=== PATIENT | female | born 1960 | race Caucasian/White ===

== ENCOUNTER 2018-06-08 16:33 | Observation (INO) ==
--- NOTE | 2018-06-08 16:39 | Emergency Department Note ---
Disposition Clinical Impression: History of seizure, Polysubstance abuse Altered mental status Qualifiers: Altered mental status type: transient alteration of awareness Qualified C ode(s): R40.4 - Transient alteration of awareness Disposition: Admitted As Inpatient Condition: Fair Altered Mental Status HPI - General Chief Complaint: ED Altered Mental Status Stated Complaint: headache, back pain per pt Time Seen by Provider: 06/08/18 16:37 Source: patient, EMS Mode of arrival: EMS Limitations: altered mental status Nursing Notes Reviewed: Yes Vital Signs Reviewed: Yes - History of Present Illness HPI Narrative: Patient has been brought in by EMS with report of an episode of unresponsiveness and possible seizure per family present. She did not have a little bit of blood from her mouth and by the time of arrival of squad and she is found to be confused. She has had IV fluids on the way to the department and arrives here stating that she "got a headache and a backache". She states he has been present for more than 24 hours. She states she has had trouble like this before and has pseudotumor cerebri. She denies any type of head injury, strain or impact. She has had history of seizures and states her last one was "a couple years ago". She states that she is not on medication for seizures but she has had a neurology in evaluation, EEG and MRI of her head without finding acute abnormality. She relates she has seen a Dr. Yovani Pozo at [facility]. She denies any routine change of her medicines. She denies visual changes, nausea or vomiting. She denies any numbness, tingling or weakness to her extremities. She denies chest pain, palpitations. She denies fevers or chills. She states she has had a little bit of a cough and shortness breath over the course of a week. She indicates this has not been very bad. She does feel that her speech is not back to normal yet and she speaks haltingly. Her family reported that she had been stuttering for about 3 days and that that is unusual for her. Her responses are appropriate. She is sitting picking at her monitor leads with good dexterity with both hands. MD complaint: altered mental status, confusion, other (Possible seizure) Onset (ago): hour(s) (1-2) Timing confirmed by: family member Pain Severity: mild, moderate Consistency of Symptoms: constant Context: history of similar presentation, seizure disorder, history psychiatric disease Associated symptoms: Reports: headaches, loss of appetite, malaise, seizure, weakness. Denies: chest pain, cough, diaphoresis, fever, chills, nausea/vomiting, rash, shortness of breath, syncope, foul smelling urine, difficulty walking, diarrhea, incontinence Treatments prior to arrival: IV fluid - Related Data Home Medications Medication Instructions Recorded Confirmed Gabapentin [Neurontin] 800 mg PO TID 12/13/16 06/08/18 Omeprazole [PriLOSEC] 40 mg PO DAILY 12/13/16 06/08/18 metFORMIN [Glucophage] 500 mg PO BIDWM 12/13/16 06/08/18 Lisinopril [Zestril] 40 mg PO DAILY 03/03/17 06/08/18 Metoprolol Succinate 200 mg PO DAILY 03/12/18 06/08/18 SUMAtriptan Succinate [Imitrex] 100 mg PO Q2H PRN 03/12/18 06/08/18 Previous Rx's Medication Instructions Recorded Cyclobenzaprine [Flexeril] 10 mg PO TID PRN #21 tablet 07/11/17 Allergies Allergy/AdvReac Type Severity Reaction Status Date / Time No Known Allergies Allergy Verified 03/12/18 09:10 All systems ED: reviewed and negative except as stated. Past Medical History - Past Medical History Attestation: Yes The following information was validated with the patient. Source: patient, old records reviewed, nursing notes reviewed Medical history: Reports: arthritis, cancer, diabetes, fibromyalgia, GERD, hyperlipidemia, hypertension, migraine, RA, seizures, other Surgical history: Reports: appendectomy, , cholecystectomy, hip replacement, hysterectomy, knee replacement, orthopedic, other Psychiatric history: Reports: anxiety, depression HEMATOLOGIST history: Reports: no HEMATOLOGIST history - Social History Smoking Status: Never smoker Smokeless Tobacco Status: No Alcohol use: Reports: none Drug use: Reports: other (History of polysubstance abuse with opiates, benzodiazepines and marijuana) Physical Exam - General Limitations: no limitations General appearance: alert, in no apparent distress, anxious - Head Head exam: atraumatic, normocephalic, normal inspection - Eye Eye exam: Present: normal appearance, PERRL, EOMI. Absent: scleral icterus, conjunctival injection - ENT ENT exam: normal exam, mucous membranes moist, other (Patient is a small or swelling on the left side of the tongue. There is no ongoing bleeding and no evidence of dental trauma.) - Neck Neck exam: Present: normal inspection, full ROM, trachea midline. Absent: tenderness, meningismus, lymphadenopathy - Chest Chest inspection: Present: normal inspection, symmetric chest wall rise. Absent: tenderness - Respiratory Respiratory exam: Present: normal lung sounds bilaterally. Absent: respiratory distress, wheezes, prolonged expiratory phase - Cardiovascular Cardiovascular exam: Present: regular rate, normal rhythm, normal heart sounds. Absent: tachycardia - Abdominal Exam Abdominal exam: Present: soft, Non-Tender, normal bowel sounds. Absent: tenderness, distention, guarding, rebound, rigidity - Extremities Exam Extremities exam: Present: normal inspection, full ROM, normal capillary refill. Absent: tenderness, pedal edema - Expanded Lower Extremity Exam Neurovascular/Tendon exam: Present: normal capillary refill. Absent: motor deficit, sensory deficit, tendon deficit Gait: not tested/not observed - Back Exam Back exam: Present: normal inspection, full ROM. Absent: tenderness, vertebral tenderness - Neurological Exam Neurological exam: Present: alert, oriented X3 (Patient is oriented to person, place, birthdate and month. She identify the president as Case Castro.), CN II-XII intact, reflexes normal. Absent: motor sensory deficit - Psychiatric Psychiatric exam: Present: normal affect, normal mood. Absent: agitated, anxious - Skin Skin exam: Present: warm, dry, intact, normal color. Absent: diaphoresis, pallor Course Course Narrative: 1729: Family arrives and finds her to be in poor hygiene but then her mental status is at baseline. They state she has had her holding speech for a long time, has had evaluations of it and no specific cause has been found. It has been suggested it is secondary to her gabapentin. 1825: With return of all tests, care has been discussed with the patient. She denied taking any prescription pain pills. When I have shown her her drug screen she states she does get Percocet from a friend was not sure where the amphetamine would be coming from. She does admit to marijuana. Her family states that she has had a seizure in the past that was associated with polysubstance abuse. It appears she likely has had a seizure. She continues with halting speech and states she needs a nerve pill to make it stop. Family states this has been going on for quite some time area I do not see evidence for other stroke or other acute metabolic process. Patient states she still feels generalized malaise and would feel better with appeared of observation further in the hospital. I advised they can speak to Dr. Yang to see if he would be agreeable with an overnight observation with seizure precautions. She has received a milligram of Ativan after obtaining her urine for drug screen. She is resting comfortably at this time with normal vital signs. 184: Dr. Yang is agreeable with observation, Ativan if needed if recurrent seizures and vital signs with neuro checks. He will reassess in the morning. Verbal orders have been obtained for her observation. 1899: The patient's daughter has returned at the time the patient is about to go to the inpatient floor. She is agreeable with her being observed in the hospital for the night. She states she will then be able to stay with her sister. She did question the results of the drug testing. I have asked the patient if you give permission for this discussion and she has declined. Her daughter expresses understanding and understands that should her mother change her mind the drug screen will also be available on the inpatient floor. Patient is taken to the floor in stable condition. Vital Signs Temperature 97.8 F 06/08/18 16:38 Pulse Rate 62 06/08/18 16:38 Respiratory Rate 17 06/08/18 16:38 Blood Pressure 150/83 06/08/18 16:38 O2 Sat by Pulse Oximetry 98 06/08/18 16:38 Temperature 97.8 F 06/08/18 16:38 Pulse Rate 65 06/08/18 18:49 Respiratory Rate 10 06/08/18 18:49 Blood Pressure 140/95 06/08/18 18:49 O2 Sat by Pulse Oximetry 97 06/08/18 18:49 Oxygen Delivery Oxygen Delivery Room Air Altered Mental Status - Differential Diagnosis Likely: altered mental status (Seizure), hypoglycemia, hyponatremia, psychiatric disease, substance use - Medical Records Medical records reviewed: Yes I reviewed the patient's medical records. - Lab Data Lab results reviewed: Yes I reviewed the patient's lab results. Result diagrams: 06/08/18 16:50 06/08/18 16:50 Lab Results 06/08/18 06/08/18 06/08/18 Range/Units 16:50 16:50 16:50 WBC 8.7 (4.3-11.1) K/mcL RBC 4.24 (3.82-4.97) M/mcL Hgb 12.3 (11.5-15.4) g/dL Hct 37.5 (35.3-44.9) % MCV 88.4 (83.0-100.0) fL MCH 29.0 (28.0-33.3) pg MCHC 32.8 (31.6-35.5) g/dL RDW 12.2 (11.5-14.5) % Plt Count 260 (140-400) K/mcL MPV 9.2 L (9.4-12.4) fL Immature Gran % 0.3 (0-4) % Seg Neutrophils % 67.3 % Lymphocytes % 23.5 % Monocytes % 5.2 % Eosinophils % 3.0 % Basophils % 0.7 % Neutrophils # 5.9 (1.6-8.9) K/mcL Lymphocytes # 2.1 (0.6-4.6) K/mcL Monocytes # 0.5 (0.0-1.3) K/mcL Eosinophils # 0.3 (0.0-0.6) K/mcL Basophils # 0.1 (0.0-0.2) K/mcL PT 10.3 (9.4-12.1) Seconds INR 0.9 APTT 31.3 (26.0-36.0) Seconds Sodium 139 (136-145) mEq/L Potassium 3.5 (3.5-5.1) mEq/L Chloride 102 (98-107) mEq/L Carbon Dioxide 30 H (23-29) mEq/L BUN 9 (6-20) mg/dL Creatinine 0.74 (0.60-1.20) mg/dL Est GFR ( Amer) > 60 (> 60) Est GFR (Non-Af Amer) > 60 (> 60) BUN/Creatinine Ratio 12 (6-26) Glucose 93 (70-105) mg/dL Calculated Osmolality 286 (280-300) Calcium 9.3 (8.6-10.3) mg/dL Total Bilirubin 0.2 L (0.3-1.0) mg/dL Direct Bilirubin 0.0 (0.0-0.2) mg/dL Indirect Bilirubin 0.2 (0.0-1.2) mg/dL AST 10 L (13-39) Units/L ALT 9 (7-52) Units/L Alkaline Phosphatase 81 (34-104) Units/L Ammonia (16-53) mcmol/L Troponin I < 0.03 (< 0.04) ng/mL Serum Total Protein 6.8 (6.4-8.9) g/dL Albumin 3.8 (3.5-5.7) g/dL Globulin 3.0 (2.4-3.5) g/dL Albumin/Globulin Ratio 1.3 (1.1-2.2) Urine Color (Yellow) Urine Clarity (Clear) Urine pH (5.0-8.0) pH Units Ur Specific [place] (1.010-1.025) Urine Protein (Neg-Trace) mg/dL Urine Glucose (UA) (Normal) mg/dL Urine Ketones (Negative) mg/dL Urine Blood (Negative) Urine Nitrite (Negative) Urine Bilirubin (Negative) Urine Urobilinogen (Normal) mg/dL Ur Leukocyte Esterase (Negative) Urine Microscopic RBC (0-3) per hpf Urine Microscopic WBC (0-3) per hpf Ur Squamous Epith Cells (None-Few) per lpf Urine Bacteria (None-Few) per hpf Ur Culture Indicated? (NO) Urine Opiates Screen (Seigxh=094) ng/mL Ur Oxycodone Screen (Cutoff= 100) ng/mL Ur Barbiturates Screen (Budswx=366) ng/mL Ur Phencyclidine Scrn (Cutoff=25) ng/mL Ur Amphetamines Screen (Ukfnqm=9485) ng/mL U Benzodiazepines Scrn (Qibmbm=280) ng/mL Urine Cocaine Screen (Cutoff= 300) ng/mL U Marijuana (THC) Screen (Cutoff = 50) ng/mL Ur Drug Screen Interp Ethyl Alcohol < 10 (Less than 10) mg/dL 06/08/18 06/08/18 06/08/18 Range/Units 16:50 17:55 17:55 WBC (4.3-11.1) K/mcL RBC (3.82-4.97) M/mcL Hgb (11.5-15.4) g/dL Hct (35.3-44.9) % MCV (83.0-100.0) fL MCH (28.0-33.3) pg MCHC (31.6-35.5) g/dL RDW (11.5-14.5) % Plt Count (140-400) K/mcL MPV (9.4-12.4) fL Immature Gran % (0-4) % Seg Neutrophils % % Lymphocytes % % Monocytes % % Eosinophils % % Basophils % % Neutrophils # (1.6-8.9) K/mcL Lymphocytes # (0.6-4.6) K/mcL Monocytes # (0.0-1.3) K/mcL Eosinophils # (0.0-0.6) K/mcL Basophils # (0.0-0.2) K/mcL PT (9.4-12.1) Seconds INR APTT (26.0-36.0) Seconds Sodium (136-145) mEq/L Potassium (3.5-5.1) mEq/L Chloride (98-107) mEq/L Carbon Dioxide (23-29) mEq/L BUN (6-20) mg/dL Creatinine (0.60-1.20) mg/dL Est GFR ( Amer) (> 60) Est GFR (Non-Af Amer) (> 60) BUN/Creatinine Ratio (6-26) Glucose (70-105) mg/dL Calculated Osmolality (280-300) Calcium (8.6-10.3) mg/dL Total Bilirubin (0.3-1.0) mg/dL Direct Bilirubin (0.0-0.2) mg/dL Indirect Bilirubin (0.0-1.2) mg/dL AST (13-39) Units/L ALT (7-52) Units/L Alkaline Phosphatase (34-104) Units/L Ammonia 27 (16-53) mcmol/L Troponin I (< 0.04) ng/mL Serum Total Protein (6.4-8.9) g/dL Albumin (3.5-5.7) g/dL Globulin (2.4-3.5) g/dL Albumin/Globulin Ratio (1.1-2.2) Urine Color Yellow (Yellow) Urine Clarity Clear (Clear) Urine pH 6.5 (5.0-8.0) pH Units Ur Specific [place] 1.010 (1.010-1.025) Urine Protein Negative (Neg-Trace) mg/dL Urine Glucose (UA) Normal (Normal) mg/dL Urine Ketones Negative (Negative) mg/dL Urine Blood Trace-lysed H (Negative) Urine Nitrite Negative (Negative) Urine Bilirubin Negative (Negative) Urine Urobilinogen Normal (Normal) mg/dL Ur Leukocyte Esterase Trace H (Negative) Urine Microscopic RBC 0-3 (0-3) per hpf Urine Microscopic WBC 0-3 (0-3) per hpf Ur Squamous Epith Cells Few (None-Few) per lpf Urine Bacteria Few (None-Few) per hpf Ur Culture Indicated? YES A (NO) Urine Opiates Screen Negative (Nvfwmh=093) ng/mL Ur Oxycodone Screen Positive H (Cutoff= 100) ng/mL Ur Barbiturates Screen Negative (Jhzwre=186) ng/mL Ur Phencyclidine Scrn Negative (Cutoff=25) ng/mL Ur Amphetamines Screen Positive H (Hcbjxo=3468) ng/mL U Benzodiazepines Scrn Negative (Cdxajw=128) ng/mL Urine Cocaine Screen Negative (Cutoff= 300) ng/mL U Marijuana (THC) Screen Positive H (Cutoff = 50) ng/mL Ur Drug Screen Interp See Below Ethyl Alcohol (Less than 10) mg/dL - Radiology Data Radiology results reviewed: Yes I reviewed the patient's radiology results. Single view chest x-ray is performed. This does not demonstrate evidence for infiltrate, effusion, pneumothorax, foreign body or heart failure. The cardiac silhouette is normal. I do not see abnormality to the osseous structures of the chest. This is on my interpretation. CT head is performed. This is reviewed on bone and soft tissue windows. There is no evidence for acute intracranial bleed, shift, mass or edema. Patient does have some frontal atrophy. Ventricular spaces appear normal. Mastoids and sinuses appear normal. There is no fracture evident. This is on my interpretation. - EKG Data EKG attestation: Yes I reviewed and interpreted this EKG. EKG shows normal: sinus rhythm, axis, intervals, QRS complexes, ST-T waves Rate: normal (60) Interpretation: no acute changes, normal EKG TPA Checklist - LKW: 3-4.5 hrs Add. Warnings/Precautions Patient/family understanding: The patient/family members have been counseled and understood the risk, benefit, and alternatives of treatment.
[2018-06-08] MEDS ORDERED: 0.9 % Sodium Chloride 1,000 ML IVC SCH (16:45)
[2018-06-08] MEDS ORDERED: *HR* LORazepam 2 MG/ML VIAL IVP ONE (16:48)
[2018-06-08 16:59] LABS: Basophils # 0.1 K/mcL (0.0-0.2); Basophils % 0.7 %; Eosinophils # 0.3 K/mcL (0.0-0.6); Hematocrit 37.5 % (35.3-44.9); Hemoglobin 12.3 g/dL (11.5-15.4); Immature Granulocytes % 0.3 % (0-4); Lymphocytes # 2.1 K/mcL (0.6-4.6); Lymphocytes % 23.5 %; Mean Corpuscular HGB Conc 32.8 g/dL (31.6-35.5); Mean Corpuscular Volume 88.4 fL (83.0-100.0); Mean Platelet Volume 9.2 fL (9.4-12.4); Monocytes # 0.5 K/mcL (0.0-1.3); Monocytes % 5.2 %; Neutrophils # 5.9 K/mcL (1.6-8.9); Platelet Count 260 K/mcL (140-400); Red Blood Count 4.24 M/mcL (3.82-4.97); Red Cell Distribution Width 12.2 % (11.5-14.5); Segmented Neutrophils % 67.3 %
[2018-06-08 17:07] LABS: INR 0.9; Prothrombin Time 10.3 Seconds (9.4-12.1)
[2018-06-08 17:09] LABS: Activated Partial Thrombo Time 31.3 Seconds (26.0-36.0)
[2018-06-08 17:18] LABS: Troponin I < 0.03 ng/mL (< 0.04)
[2018-06-08 17:19] LABS: Alanine Aminotransferase 9 Units/L (7-52); Albumin 3.8 g/dL (3.5-5.7); Albumin/Globulin Ratio 1.3 (1.1-2.2); Alkaline Phosphatase 81 Units/L (34-104); Aspartate Amino Transferase 10 Units/L (13-39); BUN/Creatinine Ratio 12 (6-26); Bilirubin,Indirect 0.2 mg/dL (0.0-1.2); Bilirubin,Total 0.2 mg/dL (0.3-1.0); Blood Urea Nitrogen 9 mg/dL (6-20); Calcium 9.3 mg/dL (8.6-10.3); Carbon Dioxide 30 mEq/L (23-29); Chloride 102 mEq/L (98-107); Ethanol < 10 mg/dL (Less than 10); Glucose 93 mg/dL (70-105); Osmolality,Calculated 286 (280-300); Potassium 3.5 mEq/L (3.5-5.1); Sodium 139 mEq/L (136-145); Total Protein 6.8 g/dL (6.4-8.9); eGFR For Non-African Americans > 60 (> 60)
[2018-06-08 18:12] LABS: Bilirubin,Urine Negative (Negative); Blood,Urine Trace-lysed (Negative); Clarity,Urine Clear (Clear); Color,Urine Yellow (Yellow); Glucose,Urine (UA) Normal (Normal); Ketones,Urine Negative (Negative); Leukocyte Esterase,Urine Trace (Negative); Nitrite,Urine Negative (Negative); PH,Urine 6.5 pH Units (5.0-8.0); Protein,Urine Negative (Neg-Trace); Urobilinogen,Urine Normal (Normal)
[2018-06-08 18:20] LABS: Bacteria,Urine Few per hpf (None-Few); RBC,Urine 0-3 per hpf (0-3); Squamous Epithelial Cell,Urine Few per lpf (None-Few); WBC,Urine 0-3 per hpf (0-3)
[2018-06-08 18:21] LABS: Amphetamine Screen,Urine Positive ng/mL (Cutoff=1000); Barbiturate Screen,Urine Negative ng/mL (Cutoff=200); Benzodiazepines Screen,Urine Negative ng/mL (Cutoff=200); Cannabinoid Screen,Urine Positive ng/mL (Cutoff = 50); Cocaine Screen,Urine Negative ng/mL (Cutoff= 300); Opiate Screen,Urine Negative ng/mL (Cutoff=300); Phencyclidine Screen,Urine Negative ng/mL (Cutoff=25)
[2018-06-08] MEDS ORDERED: Dextrose Gel 15 GM/37.5 ML TUBE PO PRN ×2 (18:50)
[2018-06-08] MEDS ORDERED: D5% in Water 1,000 ML IVC PRN (18:50)
[2018-06-08] MEDS ORDERED: *HR* LORazepam 2 MG/ML VIAL IVP PRN (18:50)
[2018-06-08] MEDS ORDERED: *HR* Dextrose 50 % in Water (Syg) 50 ML SYRINGE IVP PRN (18:50)
[2018-06-08] MEDS ORDERED: SUMAtriptan succinate 50 MG TABLET PO PRN (18:50)
[2018-06-08] MEDS ORDERED: Naloxone 0.4 MG/ML INJ IVP PRN (18:50)
[2018-06-08] MEDS: 0.9 % Sodium Chloride 1,000 ML IVC SCH (19:00)
[2018-06-08] MEDS: Gabapentin 400 MG CAPSULE PO SCH (22:19)
[2018-06-09] MEDS: 0.9 % Sodium Chloride 1,000 ML IVC SCH (02:26)
[2018-06-09] MEDS ORDERED: *HR* Metformin 500 MG TABLET PO SCH (08:00)
[2018-06-09] MEDS: Gabapentin 400 MG CAPSULE PO SCH (08:35)
[2018-06-09] MEDS: Insulin LISPRO 300 UNITS/3 ML VIAL SQ SCH ×2 (08:35→11:39)
[2018-06-09] MEDS ORDERED: Metoprolol XL (24 HR) Succ 50 MG TAB.ER.24H PO SCH (09:00)
[2018-06-09] MEDS ORDERED: Lisinopril 20 MG TABLET PO SCH (09:00)
[2018-06-09 09:34] VITALS: BP 134/75
--- NOTE | 2018-06-09 12:04 | Internal Med History&Physical ---
Date of Encounter: 06/09/18 Time of Encounter: 11:35 Assessment and Plan (1) Seizure disorder Current visit: No Status: Chronic No further seizures since admission. (2) Pseudotumor cerebri Current visit: No Status: Chronic No treatment such as acetazolomide in use at this time. (3) Polysubstance abuse Current visit: Yes Status: Chronic She did not deny this. (4) HTN (hypertension) Current visit: No Status: Chronic Continue Toprol-XL and lisinopril Qualifiers: Hypertension type: essential hypertension Qualified Code(s): I10 - Essential (primary) hypertension Internal Medicine - H&P: HPI Chief complaint: Seizure Admitted From: Emergency Dept Plans for Post Hospital Care: Home History of present illness: Ms. Amlanzar is a 57 year old female who came to emergency room after family reported her to be unresponsive and had possible seizure. She was evaluated in emergency room with CT of head showing no acute pathology. There were no significant metabolic abnormalities. Urine drug screen tested positive for oxycodone, amphetamine, and marijuana. It was felt she should be observed overnight for ongoing care needs. She reports her first seizure was at approximately 16 years of age. She reports having a "few" seizures since initial one and estimates most recent one to have been 4-5 years ago. She does not take seizure medication. She has seen a neurologist at [facility] purports the last visit approximately 4 years ago. She denies alcohol use. She denies large distribution strokes. Past Med Surg Social Fam HX - Past Medical History Medical history: arthritis, diabetes, fibromyalgia, GERD, hyperlipidemia, hypertension, migraine, RA, seizures, other Additional medical history: hx of diverticulitis, IBS,neuropathy,pseudo tumor cerebri had shunt in spine, lipoma on back, Psychiatric history: anxiety, depression - Past Surgical History Surgical History: appendectomy, , cholecystectomy, hip replacement, hysterectomy, knee replacement, orthopedic, other Additional surgical history: eye surgery - Social History Smoking Status: Never smoker Smokeless Tobacco Status: No Alcohol use: none Drug use: marijuana, other - Family History Mother Adopted: No Living Status: Unknown Hx Family Cardiac Disorders: No Hx Family Respiratory Disorders: No Hx Family Cancer: No Hx Family GI Disorders: No Hx Family Endocrine Disorder: No Hx Family Neuromuscular Disorders: No Hx Family Neurologic Disorders: No Hx Family HEENT Disorders: No Hx Family Autoimmune Disorders: No Daughter Living Status: Still Living Hx Family Cancer: Yes Internal Medicine - H&P: Meds Gabapentin [Neurontin] 800 mg PO TID 12/13/16 [History] Omeprazole [PriLOSEC] 40 mg PO DAILY 12/13/16 [History] metFORMIN [Glucophage] 500 mg PO BIDWM 12/13/16 [History] Lisinopril [Zestril] 40 mg PO DAILY 03/03/17 [History] Cyclobenzaprine [Flexeril] 10 mg PO TID PRN #21 tablet 07/11/17 [Rx] Metoprolol Succinate 200 mg PO DAILY 03/12/18 [History] SUMAtriptan Succinate [Imitrex] 100 mg PO Q2H PRN 03/12/18 [History] Allergy/AdvReac Type Severity Reaction Status Date / Time No Known Allergies Allergy Verified 03/12/18 09:10 All Systems PM: A 10-system review of systems was performed and is negative for pertinent findings except as documented above in the HPI. Review of systems: Gen.: She states her weight has decreased proximate 40 pounds in the past 3 months, unintentional Cardiovascular: She has history of hypertension but denies MS heart failure DVT or pulmonary embolus. She reports occasional chest pain on exertion. Respiratory: She states she is a lifelong nonsmoker denies chronic lung disease GI: She has had cholecystectomy. She denies disorders of her liver or exocrine pancreas : She denies hematuria dysuria or kidney stones Neurologic: As per history of present illness Endocrine: She was diagnosed with DM 2 approximately 2016. She denies known thyroid disease or hyperlipidemia Hematology/oncology: She denies blood disorders cancers or anemia Psychiatric: She feels depressed at times but does not take medication. She denies other mental health diagnosis. [place] skeletal: She has DJD and gout. She has had bilateral total knee replacements and right hip replacement. She reports RLS. She denies other bone joint or muscle disorders. - Constitutional Vitals: Temp Pulse Resp BP Pulse Ox 97.5 F L 60 16 134/75 94 06/09/18 09:33 02 09:33 02 09:33 06/09/18 09:33 06/09/18 09:33 Exam: Gen.: She is a well-developed overweight female resting comfortably in bed who appears in no severe distress HEENT: Head is atraumatic and normal cephalic. Eyes: EOMI. There is no scleral icterus. Mouth: Mucosa is moist. Neck: Supple and nontender. There is no thyromegaly or adenopathy noted. Heart: Regular without murmurs gallops or ectopics Lungs: No wheezes or crackles are heard. Abdomen: Soft and nontender. No masses or guarding are noted. Extremities: There is no cyanosis edema or clubbing noted. Dorsalis pedis and posttibial pulses are trace to 1+ palpable bilaterally. Neurologic: Mental status: She is talkative and a good historian. Cranial nerves: Smile is symmetric. Forehead wrinkles bilaterally. Tongue protrudes midline. EOMI. Motor: There is no pronator drift. Cerebellar: Finger to nose is intact bilaterally. Skin: Warm and dry Internal Med - H&P Results - Labs CBC & Chem 7: 06/08/18 16:50 06/08/18 16:50 Labs: Short CBC 06/08/18 Range/Units 16:50 WBC 8.7 (4.3-11.1) K/mcL Hgb 12.3 (11.5-15.4) g/dL Hct 37.5 (35.3-44.9) % Plt Count 260 (140-400) K/mcL Neutrophils # 5.9 (1.6-8.9) K/mcL BMP 06/08/18 16:50 Sodium 139 Potassium 3.5 Chloride 102 Carbon Dioxide 30 H BUN 9 Creatinine 0.74 Glucose 93 Calcium 9.3 Cardiac Enzymes 06/08/18 Range/Units 16:50 Troponin I < 0.03 (< 0.04) ng/mL Liver Function 06/08/18 Range/Units 16:50 Total Bilirubin 0.2 L (0.3-1.0) mg/dL Direct Bilirubin 0.0 (0.0-0.2) mg/dL AST 10 L (13-39) Units/L ALT 9 (7-52) Units/L Alkaline Phosphatase 81 (34-104) Units/L Albumin 3.8 (3.5-5.7) g/dL Urine 06/08/18 Range/Units 17:55 Urine Color Yellow (Yellow) Urine Clarity Clear (Clear) Urine pH 6.5 (5.0-8.0) pH Units Ur Specific [place] 1.010 (1.010-1.025) Urine Protein Negative (Neg-Trace) mg/dL Urine Glucose (UA) Normal (Normal) mg/dL - Impressions ITS Impressions Chest X-Ray 06/08/18 16:38 IMPRESSION: No acute process. D/ / Robinson Bernabe MD / Robinson Bernabe MD Interpreting Provider: Robinson Bernabe MD Head CT 06/08/18 16:38 IMPRESSION: No acute intracranial abnormality. D/ / Robinson Bernabe MD / Robinson Bernabe MD Interpreting Provider: Robinson Bernabe MD
--- NOTE | 2018-06-09 12:27 | Discharge Summary ---
Orders not resulted at time of discharge: Pending orders 06/08/18 16:38 ECG 12 lead ECG [ECG] Stat 06/08/18 17:55 Culture,Urine [RM] Stat Date of Encounter: 06/09/18 Time of Encounter: 11:35 - Discharge Diagnosis (1) Seizure disorder Priority: Primary Status: Chronic (2) Pseudotumor cerebri Priority: Secondary Status: Chronic (3) Polysubstance abuse Priority: Secondary Status: Chronic (4) HTN (hypertension) Priority: Secondary Status: Chronic Qualifiers: Hypertension type: essential hypertension Qualified Code(s): I10 - Essential (primary) hypertension Hospital course: Ms. Almanzar is a 57 year old female who came to emergency room after family reported her to be unresponsive and had possible seizure. She was evaluated in emergency room with CT of head showing no acute pathology. There were no significant metabolic abnormalities. Urine drug screen tested positive for oxycodone, amphetamine, and marijuana. It was felt she should be observed overnight for ongoing care needs. Initial orders were written by emergency room physician. I saw her on June 09 and performed the history and physical and discharge. She had no further seizures after admission. When I saw her I felt she was back to her baseline. I encouraged her strongly to discontinue polysubstance abuse. I told her she should follow with the neurologist at [facility] for further evaluation/treatment for seizures. Consideration for treatment for pseudotumor cerebri could be made by the neurologist also. He should also evaluate if she should retain driving privileges at this time. She will follow with her PCP Alireza Crocker CNP within 1 week. - Time Spent with Patient Total time spent providing and/or coordinating discharge services: - Discharge Medications Home Medications: Gabapentin [Neurontin] 800 mg PO TID 12/13/16 [History] Omeprazole [PriLOSEC] 40 mg PO DAILY 12/13/16 [History] metFORMIN [Glucophage] 500 mg PO BIDWM 12/13/16 [History] Lisinopril [Zestril] 40 mg PO DAILY 03/03/17 [History] Cyclobenzaprine [Flexeril] 10 mg PO TID PRN #21 tablet 07/11/17 [Rx] Metoprolol Succinate 200 mg PO DAILY 03/12/18 [History] SUMAtriptan Succinate [Imitrex] 100 mg PO Q2H PRN 03/12/18 [History] Allergies/Adverse Reactions: Allergy/AdvReac Type Severity Reaction Status Date / Time No Known Allergies Allergy Verified 03/12/18 09:10 Date of admission: 06/08/18 18:45 Primary care physician: Alireza Crocker CNP - Constitutional Vitals: Temp Pulse Resp BP Pulse Ox 97.5 F L 60 16 134/75 94 06/09/18 09:33 06/09/18 09:33 06/09/18 09:33 06/09/18 09:33 06/09/18 09:33 - Patient Status Disposition: Home, Self-Care Condition: Fair - Discharge Instructions Follow Up With: Alireza Crocker CNP [Primary Care Provider] - 1 week - Diet and Activity Activity: resume usual activities as tolerated Diet: advance to your usual diet
--- NOTE | 2018-06-12 13:51 | Electrocardiograph Report ---
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
== END 2018-06-09 13:02 | disposition home or self-care (01) ==
LOC: INPPIK 16:33 → EMEROOPIK 16:33 → INPPIK 19:01
PROVIDERS: ADMIT Internal Medicine; ATTEND Internal Medicine

== ENCOUNTER 2018-06-29 18:24 | Inpatient (IN) ==
[2018-06-29] MEDS ORDERED: 0.9 % Sodium Chloride 1,000 ML IVC ONE (18:42)
[2018-06-29 19:01] LABS: Bilirubin,Urine Negative (Negative); Blood,Urine Moderate (Negative); Clarity,Urine Clear (Clear); Color,Urine Yellow (Yellow); Glucose,Urine (UA) Normal (Normal); Ketones,Urine Negative (Negative); Leukocyte Esterase,Urine Large (Negative); Nitrite,Urine Positive (Negative); Protein,Urine Negative (Neg-Trace); Urobilinogen,Urine Normal (Normal)
[2018-06-29 19:11] LABS: Basophils # 0.1 K/mcL (0.0-0.2); Basophils % 0.5 %; Eosinophils # 0.2 K/mcL (0.0-0.6); Eosinophils % 1.9 %; Hematocrit 36.8 % (35.3-44.9); Hemoglobin 12.1 g/dL (11.5-15.4); Immature Granulocytes % 0.3 % (0-4); Lymphocytes # 1.5 K/mcL (0.6-4.6); Lymphocytes % 15.6 %; Mean Corpuscular HGB Conc 32.9 g/dL (31.6-35.5); Mean Corpuscular Hemoglobin 28.9 pg (28.0-33.3); Mean Platelet Volume 9.4 fL (9.4-12.4); Monocytes # 0.5 K/mcL (0.0-1.3); Neutrophils # 7.3 K/mcL (1.6-8.9); Platelet Count 270 K/mcL (140-400); Red Blood Count 4.18 M/mcL (3.82-4.97); Red Cell Distribution Width 12.6 % (11.5-14.5); Segmented Neutrophils % 76.7 %
[2018-06-29 19:20] LABS: Squamous Epithelial Cell,Urine Few per lpf (None-Few)
[2018-06-29 19:21] LABS: WBC,Urine 30-50 per hpf (0-3)
[2018-06-29 19:23] LABS: Bacteria,Urine Moderate per hpf (None-Few)
[2018-06-29 19:26] LABS: BUN/Creatinine Ratio 11 (6-26); Blood Urea Nitrogen 8 mg/dL (6-20); Calcium 9.3 mg/dL (8.6-10.3); Carbon Dioxide 26 mEq/L (23-29); Chloride 101 mEq/L (98-107); Glucose 152 mg/dL (70-105); Magnesium 1.3 mg/dL (1.6-2.6); Osmolality,Calculated 289 (280-300); Phosphorous 3.2 mg/dL (2.7-4.5); Potassium 3.1 mEq/L (3.5-5.1); Sodium 139 mEq/L (136-145); eGFR For Non-African Americans > 60 (> 60)
[2018-06-29 19:34] LABS: Amphetamine Screen,Urine Positive ng/mL (Cutoff=1000); Barbiturate Screen,Urine Negative ng/mL (Cutoff=200); Benzodiazepines Screen,Urine Negative ng/mL (Cutoff=200); Cannabinoid Screen,Urine Positive ng/mL (Cutoff = 50); Cocaine Screen,Urine Negative ng/mL (Cutoff= 300); Opiate Screen,Urine Negative ng/mL (Cutoff=300); Phencyclidine Screen,Urine Negative ng/mL (Cutoff=25)
[2018-06-29] MEDS ORDERED: cefTRIAXone 1,000 MG in Water for inj. (sterile) 20 ML 10 ML IVP ONE (19:37)
[2018-06-29] MEDS ORDERED: Potassium Chloride Elixir 20 MEQ/15 ML UDC PO ONE (19:56)
[2018-06-29] MEDS ORDERED: Magnesium Oxide 400 MG TABLET PO STA (19:56)
--- NOTE | 2018-06-29 20:10 | Emergency Department Note ---
Disposition Clinical Impression: Seizure, Polysubstance abuse Disposition: Admitted As Inpatient Condition: Fair Referrals: Alireza Crocker CNP [Primary Care Provider] - Forms: ED Satisfaction Letter, Work/School Release Seizure HPI - General Chief Complaint: ED General Medical Stated Complaint: POSSIBLE SEIZURE/DRUG USE Time Seen by Provider: 06/29/18 18:41 Source: patient, family, EMS Mode of arrival: EMS Limitations: other Nursing Notes Reviewed: Yes Vital Signs Reviewed: Yes - History of Present Illness HPI Narrative: Agent presents to the ED with report of having had 2 seizures today. Per EMS they were called out to the patient's resident twice for seizure activity. The first and they went out to assess patient was not seizing and she was alert and oriented and refused transport. They were then called back out less than an hour later for reported seizure again. Hemostasis in the right patient was sitting up on the side of bed alert and awake and was not having any seizure activity. She had a specimen in her mouth which other people to house head patient her mouth presented with a keeper from biting her swallowing her tongue. She had no complaints but did agree to come into the ED. On arrival here patient is somnolent and appears to be post ictal but will wake up and answer questions. She knows her name and her location. She does not recall what happened earlier today. She denies having any history of seizures or taking any seizure medication. She does tell me that she has pseudotumor cerebri, high blood pressure and diabetes. Per EMS glucose was 150. She denies any tobacco, alcohol or drug use. EMS did state that other people at the residence appeared to be "on something" because they were "all over the place". Patient tells me she does not feel well but cannot give me any more specific information. When questioned directly she denied any pain including headache, chest pain or abdominal pain. She denied any difficulty breathing, nausea, vomiting or diarrhea. - Related Data Home Medications Medication Instructions Recorded Confirmed Gabapentin [Neurontin] 800 mg PO TID 12/13/16 06/08/18 Omeprazole [PriLOSEC] 40 mg PO DAILY 12/13/16 06/08/18 metFORMIN [Glucophage] 500 mg PO BIDWM 12/13/16 06/08/18 Lisinopril [Zestril] 40 mg PO DAILY 03/03/17 06/08/18 Metoprolol Succinate 200 mg PO DAILY 03/12/18 06/08/18 SUMAtriptan Succinate [Imitrex] 100 mg PO Q2H PRN 03/12/18 06/08/18 Citalopram Hydrobromide 40 mg PO DAILY 06/29/18 06/29/18 [Citalopram HBr] hydrOXYzine HCl [Hydroxyzine HCl] 50 mg PO BID 06/29/18 06/29/18 Previous Rx's Medication Instructions Recorded Cyclobenzaprine [Flexeril] 10 mg PO TID PRN #21 tablet 07/11/17 Allergies Allergy/AdvReac Type Severity Reaction Status Date / Time No Known Allergies Allergy Verified 06/29/18 18:37 Constitutional: Denies: fever, chills, weakness, weight change Eyes: Denies: eye pain, eye discharge, vision change ENT ED: Denies: ear pain, throat pain, dental pain, hearing loss, epistaxis, congestion, dysphagia Cardiovascular: Denies: chest pain, palpitations, dyspnea on exertion, edema, syncope Respiratory: Denies: cough, dyspnea, wheezes, hemoptysis, stridor Gastrointestinal: Denies: abdominal pain, nausea, vomiting, diarrhea, constipation, hematemesis, melena, hematochezia Genitourinary: Denies: dysuria, frequency, hematuria, discharge Musculoskeletal: Denies: back pain, neck pain, arthralgia, myalgia Integumentary: Denies: rash, abrasion, lesions Neurological: Reports: as per HPI. Denies: headache, weakness, numbness, paresthesias, confusion, abnormal gait, vertigo Psychiatric: Denies: anxiety, depression, suicidal thoughts, homicidal thoughts, auditory hallucinations, visual hallucinations Endocrine: Denies: fatigue Hematological/Lymphatic: Denies: easy bleeding, easy bruising Allergic/Immunologic: Denies: facial swelling, urticaria Past Medical History - Past Medical History Medical history: Reports: arthritis, diabetes, fibromyalgia, GERD, hyperlipidemia, hypertension, migraine, RA, seizures, other Surgical history: Reports: appendectomy, , cholecystectomy, hip replacement, hysterectomy, knee replacement, orthopedic, other Psychiatric history: Reports: anxiety, bipolar, depression 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 - Social History Smoking Status: Current every day smoker Smokeless Tobacco Status: No Alcohol use: Reports: unknown Drug use: Reports: marijuana, other Physical Exam - General Limitations: other General appearance: in no apparent distress, other (drowsy, post-ictal) - Head Head exam: atraumatic, normocephalic, normal inspection - Eye Eye exam: Present: PERRL, EOMI, mydriasis - ENT ENT exam: normal oropharynx, mucous membranes moist - Expanded ENT Exam Mouth exam: Present: laceration (small lac/bite to R side of tongue) Throat exam: Present: normal inspection - Neck Neck exam: Present: normal inspection, full ROM, trachea midline - Chest Chest inspection: Present: normal inspection, symmetric chest wall rise - Respiratory Respiratory exam: Present: normal lung sounds bilaterally - Cardiovascular Cardiovascular exam: Present: regular rate, normal rhythm, normal heart sounds - Abdominal Exam Abdominal exam: Present: soft, Non-Tender. Absent: tenderness, distention, gu arding, rebound, rigidity - Extremities Exam Extremities exam: Present: normal inspection, full ROM. Absent: tenderness, pedal edema - Back Exam Back exam: Present: normal inspection, full ROM. Absent: tenderness - Neurological Exam Neurological exam: Present: alert, CN II-XII intact. Absent: motor sensory deficit - Expanded Neurological Exam Patient oriented to: Present: person, place Motor strength - LUE: 5/5 Motor strength - RUE: 5/5 Motor strength - LLE: 5/5 Motor strength - RLE: 5/5 Coma Scale Eye Opening: Spontaneous Coma Scale Motor Response: Obeys Commands Coma Scale Verbal Response: Confused Coma Scale Total: 14 - Skin Skin exam: Present: warm, dry, intact, normal color Course Course Narrative: Patient is brought to the ED via EMS with report of 2 seizures earlier today. There is no seizure activity witnessed by EMS the patient does appear drowsy and postictal on arrival. She is a poor historian and difficult to obtain information from but essentially denies any complaints other than generally not feeling well. Will check routine lab work. - Reevaluation(s) Reevaluation #1: Patient's 2 daughters arrived. They do not live with the patient but states that she has had a few seizures in the past but they believe is related to drug use, either illicit drug use or drug withdrawal. They state her first seizure was several years ago and she had to be intubated and was transferred to [place] where she stayed for a few days. States she was also brought here possibly 3 weeks ago after having a seizure. They state that she had a normal workup and no tox screen was done but the doctor could not tell them what the results were because the patient did not give him permission to do so. They are concerned that the patient is buying drugs on the street. They note that a friend that the patient lives with has told them that the patient does get pain pills form other people. They do know that the patient's prescriptions currently consist of simvastatin, gabapentin, Vistaril, Flexeril and metformin. While family was at the bedside patient did have a brief seizure witnessed by nursing staff in which the patient went to full extension and in flexion and her eyes rolled back. Nurses state that she had a very brief moment of apnea and entire seizure episode only lasted approximately 30 seconds. There was called to the bedside and patient was found to be breathing with snoring respirations but not in any distress. She had been put on a few liters of oxygen via nasal cannula and was satting 100%. I reviewed patient's chart regarding her recent admission which was on June 08. It appears to be a similar presentation. Patient had extensive workup including labs, EKG, chest x-ray and head CT. The only abnormalities found at that time was a tox screen that was positive for amphetamines, THC and oxycodone. Patient was kept overnight for observation and discharge the next day with instructions to stop using drugs and to follow-up with neurology at [facility]. Reevaluation #2: Patient's labs are notable for a mildly low potassium of 3.1, magnesium of 1.3 and urinalysis shows evidence of UTI. Tox screen is again positive for THC, oxycodone and amphetamines. Reassessment patient is still very post ictal but will awake and answer questions. She identified her daughter as her mother. Patient still denies any complaints but is clearly not back to a normal neurologic baseline. She does have some stuttering which family states is normal for her and does tend to worsen at times when she has had a seizure. They state of her last admission when she was started and she asked for a nerve pill and after they gave her anti-anxiety medicine her speech cleared. She is not prescribed any anxiety medication that they are aware of. Will give oral potassium and magnesium replacement. We will give ceftriaxone for her UTI. Time: 20:00 Reevaluation #3: Patient is still very somnolent but will awaken answer basic questions. I informed her of her test results. She did give me permission to discuss her drug screen results in front of her daughters. She does admit that she gets pain pills from other people. Daughters state that they were aware that she smoked marijuana. She denies any knowledge of why she would be positive for amphetamines. Given that patient is still extremely drowsy with some drugs on board I feel that she would benefit from overnight observation, particularly in case she has any additional seizure activity. Family is in agreement with this along with the patient. I spoke to the hospitalist who has agreed to accept the patient. He did ask that she be given a small dose of Ativan to hopefully prevent additional seizures overnight. He did not request a CT to be done given that it was normal one month ago. Time: 20:49 Additional Reevaluation(s): 21:19 - I was called to the bedside after patient had another brief witnessed seizure with family at the bedside. They described that she began to have some mild twitching, begin blinking rapidly and then her eyes rolled back and she jerked a few times. Staff estimates seizure activity lasted less than 30 seconds. Patient was not post ictal with snoring respirations and somnolence. She apparently bit her tongue again as there is fresh bleeding from the previously noted bite site. No other new injuries to the tongue. Patient had not yet received the milligram of Ativan that had been just ordered but it has been given since the seizure ended. Will obtain head CT given the repeated seizures to rule out any other cause for her seizures before transferring patient to the floor. 22:10 - head CT is normal. Patient is still drowsy but arousable with no complaints. I spoke to the hospitalist again to confirm that he is so complex up in the patient after the additional seizure to inform him of the negative head CT and he still accepted the patient. Vital Signs Temperature 98.5 F 06/29/18 18:27 Pulse Rate 100 06/29/18 18:27 Respiratory Rate 20 06/29/18 18:27 Blood Pressure 167/102 06/29/18 18:27 O2 Sat by Pulse Oximetry 90 06/29/18 18:27 Temperature 98.3 F 06/29/18 21:37 Pulse Rate 114 06/29/18 21:40 Respiratory Rate 22 06/29/18 21:40 Blood Pressure 166/101 06/29/18 21:40 O2 Sat by Pulse Oximetry 95 06/29/18 21:40 Oxygen Delivery Oxygen Delivery Nasal Cannula Seizure - Differential Diagnosis Likely: generalized seizure, seizure mimics syncope, seizure mimics pseudo- seizure - Medical Records Medical records reviewed: Yes I reviewed the patient's medical records. - Lab Data Lab results reviewed: Yes I reviewed the patient's lab results. Result diagrams: 06/29/18 19:04 06/29/18 19:04 Lab Results 06/29/18 06/29/18 06/29/18 Range/Units 18:57 18:57 19:04 WBC 9.5 (4.3-11.1) K/mcL RBC 4.18 (3.82-4.97) M/mcL Hgb 12.1 (11.5-15.4) g/dL Hct 36.8 (35.3-44.9) % MCV 88.0 (83.0-100.0) fL MCH 28.9 (28.0-33.3) pg MCHC 32.9 (31.6-35.5) g/dL RDW 12.6 (11.5-14.5) % Plt Count 270 (140-400) K/mcL MPV 9.4 (9.4-12.4) fL Immature Gran % 0.3 (0-4) % Seg Neutrophils % 76.7 % Lymphocytes % 15.6 % Monocytes % 5.0 % Eosinophils % 1.9 % Basophils % 0.5 % Neutrophils # 7.3 (1.6-8.9) K/mcL Lymphocytes # 1.5 (0.6-4.6) K/mcL Monocytes # 0.5 (0.0-1.3) K/mcL Eosinophils # 0.2 (0.0-0.6) K/mcL Basophils # 0.1 (0.0-0.2) K/mcL Sodium (136-145) mEq/L Potassium (3.5-5.1) mEq/L Chloride (98-107) mEq/L Carbon Dioxide (23-29) mEq/L BUN (6-20) mg/dL Creatinine (0.60-1.20) mg/dL Est GFR ( Amer) (> 60) Est GFR (Non-Af Amer) (> 60) BUN/Creatinine Ratio (6-26) Glucose (70-105) mg/dL Calculated Osmolality (280-300) Calcium (8.6-10.3) mg/dL Phosphorus (2.7-4.5) mg/dL Magnesium (1.6-2.6) mg/dL Urine Color Yellow (Yellow) Urine Clarity Clear (Clear) Urine pH 6.0 (5.0-8.0) pH Units Ur Specific [place] 1.010 (1.010-1.025) Urine Protein Negative (Neg-Trace) mg/dL Urine Glucose (UA) Normal (Normal) mg/dL Urine Ketones Negative (Negative) mg/dL Urine Blood Moderate H (Negative) Urine Nitrite Positive A (Negative) Urine Bilirubin Negative (Negative) Urine Urobilinogen Normal (Normal) mg/dL Ur Leukocyte Esterase Large H (Negative) Urine Microscopic RBC 3-5 H (0-3) per hpf Urine Microscopic WBC 30-50 H (0-3) per hpf Ur Squamous Epith Cells Few (None-Few) per lpf Urine Bacteria Moderate H (None-Few) per hpf Urine Opiates Screen Negative (Uxesog=056) ng/mL Ur Oxycodone Screen Positive H (Cutoff= 100) ng/mL Ur Barbiturates Screen Negative (Idryrj=792) ng/mL Ur Phencyclidine Scrn Negative (Cutoff=25) ng/mL Ur Amphetamines Screen Positive H (Blcwgo=3225) ng/mL U Benzodiazepines Scrn Negative (Auixip=338) ng/mL Urine Cocaine Screen Negative (Cutoff= 300) ng/mL U Marijuana (THC) Screen Positive H (Cutoff = 50) ng/mL Ur Drug Screen Interp See Below 06/29/18 Range/Units 19:04 WBC (4.3-11.1) K/mcL RBC (3.82-4.97) M/mcL Hgb (11.5-15.4) g/dL Hct (35.3-44.9) % MCV (83.0-100.0) fL MCH (28.0-33.3) pg MCHC (31.6-35.5) g/dL RDW (11.5-14.5) % Plt Count (140-400) K/mcL MPV (9.4-12.4) fL Immature Gran % (0-4) % Seg Neutrophils % % Lymphocytes % % Monocytes % % Eosinophils % % Basophils % % Neutrophils # (1.6-8.9) K/mcL Lymphocytes # (0.6-4.6) K/mcL Monocytes # (0.0-1.3) K/mcL Eosinophils # (0.0-0.6) K/mcL Basophils # (0.0-0.2) K/mcL Sodium 139 (136-145) mEq/L Potassium 3.1 L (3.5-5.1) mEq/L Chloride 101 (98-107) mEq/L Carbon Dioxide 26 (23-29) mEq/L BUN 8 (6-20) mg/dL Creatinine 0.71 (0.60-1.20) mg/dL Est GFR ( Amer) > 60 (> 60) Est GFR (Non-Af Amer) > 60 (> 60) BUN/Creatinine Ratio 11 (6-26) Glucose 152 H (70-105) mg/dL Calculated Osmolality 289 (280-300) Calcium 9.3 (8.6-10.3) mg/dL Phosphorus 3.2 (2.7-4.5) mg/dL Magnesium 1.3 L (1.6-2.6) mg/dL Urine Color (Yellow) Urine Clarity (Clear) Urine pH (5.0-8.0) pH Units Ur Specific [place] (1.010-1.025) Urine Protein (Neg-Trace) mg/dL Urine Glucose (UA) (Normal) mg/dL Urine Ketones (Negative) mg/dL Urine Blood (Negative) Urine Nitrite (Negative) Urine Bilirubin (Negative) Urine Urobilinogen (Normal) mg/dL Ur Leukocyte Esterase (Negative) Urine Microscopic RBC (0-3) per hpf Urine Microscopic WBC (0-3) per hpf Ur Squamous Epith Cells (None-Few) per lpf Urine Bacteria (None-Few) per hpf Urine Opiates Screen (Zpclrj=656) ng/mL Ur Oxycodone Screen (Cutoff= 100) ng/mL Ur Barbiturates Screen (Trgocj=469) ng/mL Ur Phencyclidine Scrn (Cutoff=25) ng/mL Ur Amphetamines Screen (Qrzlgl=5641) ng/mL U Benzodiazepines Scrn (Noixrl=206) ng/mL Urine Cocaine Screen (Cutoff= 300) ng/mL U Marijuana (THC) Screen (Cutoff = 50) ng/mL Ur Drug Screen Interp - Radiology Data Radiology results reviewed: Yes I reviewed the patient's radiology results. ITS Impressions Head CT 06/29/18 21:07 IMPRESSION: No acute intracranial abnormality. D/ / Wenceslao Abreu MD / Wenceslao Abreu MD Interpreting Provider: Wenceslao Abreu MD
[2018-06-29] MEDS ORDERED: *HR* LORazepam 2 MG/ML VIAL IVP ONE (20:46)
[2018-06-29] MEDS ORDERED: Naloxone 0.4 MG/ML INJ IVP PRN (22:12)
[2018-06-29] MEDS ORDERED: D5% in Water 1,000 ML IVC PRN (22:17)
[2018-06-29] MEDS ORDERED: Dextrose 4 GM Chewable Tablets PO PRN ×2 (22:17)
[2018-06-29] MEDS ORDERED: Dextrose Gel 15 GM/37.5 ML TUBE PO PRN ×2 (22:17)
[2018-06-29] MEDS ORDERED: *HR* Dextrose 50 % in Water (Syg) 50 ML SYRINGE IVP PRN (22:17)
[2018-06-30] MEDS: SUMAtriptan succinate 50 MG TABLET PO PRN ×2 (06:28→12:35)
[2018-06-30 06:36] LABS: BUN/Creatinine Ratio 10 (6-26); Blood Urea Nitrogen 6 mg/dL (6-20); Calcium 9.1 mg/dL (8.6-10.3); Carbon Dioxide 27 mEq/L (23-29); Chloride 105 mEq/L (98-107); Glucose 106 mg/dL (70-105); Magnesium 1.4 mg/dL (1.6-2.6); Osmolality,Calculated 288 (280-300); Potassium 3.9 mEq/L (3.5-5.1); Sodium 140 mEq/L (136-145); eGFR For Non-African Americans > 60 (> 60)
[2018-06-30] MEDS: Insulin LISPRO 300 UNITS/3 ML VIAL SQ SCH ×3 (07:39→16:05)
[2018-06-30] MEDS: Metoprolol XL (24 HR) Succ 50 MG TAB.ER.24H PO SCH (07:47)
[2018-06-30] MEDS: *HR* Metformin 500 MG TABLET PO SCH ×2 (07:48→21:15)
[2018-06-30] MEDS: Lisinopril 20 MG TABLET PO SCH (07:48)
[2018-06-30] MEDS ORDERED: hydrOXYzine pamoate 25 MG CAPSULE PO SCH (09:00)
--- NOTE | 2018-06-30 09:58 | Internal Med History&Physical ---
Date of Encounter: 06/30/18 Time of Encounter: 09:30 Assessment and Plan (1) Seizure disorder Current visit: No Status: Chronic She was given a dose of IV Ativan in emergency room and no further seizures have occurred. She will be started on maintenance Topamax 50 mg daily. Cyclobenzaprine will be discontinued to avoid seizure risk. I strongly recom mended to patient and family she follow with neurologist. (2) UTI (urinary tract infection) Current visit: No Status: Acute Urine culture will be ordered. She will be given Rocephin empirically. Qualifiers: Urinary tract infection type: site unspecified Hematuria presence: without hematuria Qualified Code(s): N39.0 - Urinary tract infection, site not specified (3) Polysubstance abuse Current visit: Yes Status: Chronic Urine drug screen positive for THC, oxycodone, and amphetamines. Identical findings on May 2017 admission drug screen. She will be monitored for withdrawal symptoms. (4) Multiple falls Current visit: Yes Status: Acute She will have physical therapy and occupational therapy evaluations. (5) Hypokalemia Current visit: Yes Status: Acute Now resolved after potassium supplementation. Continue to monitor labs. (6) Hypomagnesemia Current visit: Yes Status: Acute Supplemental magnesium will be ordered (7) Type 2 diabetes mellitus Current visit: No Status: Chronic Hemoglobin A1c was 6.1% on 03/11/2018. Continue metformin Qualifiers: Diabetes mellitus funder insulin use: without halfway use Diabetes mellitus complication status: without complication Qualified Code(s): E11.9 - Type 2 diabetes mellitus without complications (8) HTN (hypertension) Current visit: No Status: Chronic Continue lisinopril and metoprolol. Qualifiers: Hypertension type: essential hypertension Qualified Code(s): I10 - Essential (primary) hypertension Internal Medicine - H&P: HPI Chief complaint: Seizures Admitted From: Emergency Dept Plans for Post Hospital Care: Home History of present illness: Ms. Almanzar is a 57 year old female who came to emergency room after having 2 witnessed seizures at her house. Her daughter who supplies most updated history today did not witness the 2 seizures at home. After transport to emergency room the patient had 2 additional seizures which were witnessed by the daughter. The daughter describes them as generalized tonic-clonic seizures lasting approximately 1 minute with postictal state. Patient was admitted to [facility] floor for ongoing care needs. She was hospitalized approximately 3 weeks ago at [facility] with seizures. She reported then her first seizure was at approximately age 16 years of age. She reported having a few seizures since that initial one and stated her most recent one prior to May was 4-5 years earlier. She has seen a neurologist at [facility] with last visit approximately 10 years ago. She does not take seizure medication. She uses Neurontin for neuropathy. She admits to THC use approximately every other day for several years. She states she uses oxycodone (nonprescribed) most days. She has recently used methamphetamine. She denies other drugs of abuse. She denies recent alcohol use but consumed alcohol in significant quantities for 20 years stopping several years ago. She has a diagnosis of pseudotumor cerebri and had an intercranial shunting procedure done several years ago but the shunt was removed due to complications and she does not presently take medication or follow-up for this. She has frequent headaches and uses Imitrex prn stating she takes approximately 4 pills in a week. She does not have documented large distribution strokes. She reports she falls 1-2 times per week at home because she is "clumsy". Past Med Surg Social Fam HX - Past Medical History Medical history: arthritis, diabetes, fibromyalgia, GERD, hyperlipidemia, hypertension, migraine, RA, seizures, other Additional medical history: IBS Psychiatric history: anxiety, depression - Past Surgical History Surgical History: appendectomy, , cholecystectomy, hip replacement, hysterectomy, knee replacement, orthopedic, other Additional surgical history: Back Surgery - Social History Smoking Status: Current every day smoker Smokeless Tobacco Status: No Alcohol use: unknown Drug use: marijuana, prescription drug abuse, other - Family History Mother Adopted: No Living Status: Unknown Hx Family Cardiac Disorders: No Hx Family Respiratory Disorders: No Hx Family Cancer: No Hx Family GI Disorders: No Hx Family Endocrine Disorder: No Hx Family Neuromuscular Disorders: No Hx Family Neurologic Disorders: No Hx Family HEENT Disorders: No Hx Family Autoimmune Disorders: No Daughter Living Status: Still Living Hx Family Cancer: Yes Internal Medicine - H&P: Meds Gabapentin [Neurontin] 800 mg PO TID 12/13/16 [History] Omeprazole [PriLOSEC] 40 mg PO DAILY 12/13/16 [History] metFORMIN [Glucophage] 500 mg PO BID 12/13/16 [History] Lisinopril [Zestril] 40 mg PO DAILY 03/03/17 [History] Cyclobenzaprine [Flexeril] 10 mg PO TID PRN #21 tablet 07/11/17 [Rx] Metoprolol Succinate 200 mg PO DAILY 03/12/18 [History] SUMAtriptan Succinate [Imitrex] 100 mg PO Q2H PRN 03/12/18 [History] Citalopram Hydrobromide [Citalopram HBr] 40 mg PO DAILY 06/29/18 [History] hydrOXYzine HCl [Hydroxyzine HCl] 50 mg PO BID 06/29/18 [History] Allergy/AdvReac Type Severity Reaction Status Date / Time No Known Allergies Allergy Verified 06/29/18 18:37 All Systems PM: A 10-system review of systems was performed and is negative for pertinent findings except as documented above in the HPI. Review of systems: Review of systems from her May 2018 [facility] hospitalization were reviewed and revised as below. Gen.: She states her weight has decreased approximately 40 pounds in the past year, unintentional Cardiovascular: She has history of hypertension but denies AL heart failure DVT or pulmonary embolus. She reports occasional chest pain on exertion. Respiratory: She states she is a lifelong nonsmoker and denies chronic lung disease. Chest CT 01/25/2018 showed 2 mm pleural based nodule in the left lower lobe. GI: She has had cholecystectomy. She denies disorders of her liver or exocrine pancreas : She denies hematuria dysuria or kidney stones Neurologic: As per history of present illness Endocrine: She was diagnosed with DM 2 approximately 2016. She has hyperlipidemia. She denies known thyroid disease. Hematology/oncology: She denies blood disorders cancers or anemia Psychiatric: She has depression but denies other mental health diagnosis. [place] skeletal: She has DJD and gout. She has had bilateral total knee replacements and right hip replacement. She reports RLS. She had back surgery a few years ago for degenerative disc disease with surgical hardware placed. She denies other bone joint or muscle disorders. - Constitutional Vitals: Temp Pulse Resp BP Pulse Ox 99.2 F 108 18 177/93 95 06/30/18 06:15 06/30/18 06:15 06/30/18 06:15 06/30/18 06:15 06/30/18 06:15 Exam: Gen.: She is well-developed well-nourished female lying in bed who appears in no acute distress HEENT: Head is atraumatic and normocephalic. Eyes: EOMI. There is no scleral icterus. Mouth: Mucosa is moist. Neck: Supple and nontender. There is no thyromegaly or adenopathy noted. Heart: Regular without murmurs gallops or ectopics Lungs: No wheezes or crackles are heard. Abdomen: Soft and nontender. No masses or guarding are noted. Extremities: There is no cyanosis edema or clubbing noted. Dorsalis pedis and posterior tibial pulses are 1-2 over 2 bilaterally. Neurologic: Mental status: She answers a few questions but is not conversational. She appears to be a reliable historian. Cranial nerves: Smile is symmetric. Forehead wrinkles bilaterally. Tongue protrudes midline. EOMI. Motor: There is no pronator drift. Cerebellar: Finger to nose is intact bilaterally. Skin: Warm and dry Internal Med - H&P Results - Labs CBC & Chem 7: 06/29/18 19:04 06/30/18 06:05 Labs: Short CBC 06/29/18 Range/Units 19:04 WBC 9.5 (4.3-11.1) K/mcL Hgb 12.1 (11.5-15.4) g/dL Hct 36.8 (35.3-44.9) % Plt Count 270 (140-400) K/mcL Neutrophils # 7.3 (1.6-8.9) K/mcL BMP 06/29/18 06/30/18 19:04 06:05 Sodium 139 140 Potassium 3.1 L 3.9 D Chloride 101 105 Carbon Dioxide 26 27 BUN 8 6 Creatinine 0.71 0.58 L Glucose 152 H 106 H Calcium 9.3 9.1 Urine 06/29/18 Range/Units 18:57 Urine Color Yellow (Yellow) Urine Clarity Clear (Clear) Urine pH 6.0 (5.0-8.0) pH Units Ur Specific [place] 1.010 (1.010-1.025) Urine Protein Negative (Neg-Trace) mg/dL Urine Glucose (UA) Normal (Normal) mg/dL - Impressions ITS Impressions Head CT 06/29/18 21:07 IMPRESSION: No acute intracranial abnormality. D/ / Wenceslao Abreu MD / Wenceslao Abreu MD Interpreting Provider: Wenceslao Abreu MD - VTE Reasons for not Prescribing Prophylaxis: Treatment not Indicated - Low risk for VTE
[2018-06-30] MEDS: Magnesium Oxide 400 MG TABLET PO SCH ×2 (11:23→21:15)
[2018-06-30] MEDS: Topiramate 25 MG TABLET PO SCH (11:24)
[2018-06-30] MEDS ORDERED: Ibuprofen 600 MG TABLET PO PRN (11:34)
[2018-06-30] MEDS ORDERED: ALPRAZolam 0.25 MG TABLET PO PRN (18:09)
[2018-06-30] MEDS: Lactobacillus 1 EACH CAP.SPRINK PO SCH (21:15)
[2018-06-30] MEDS: cefTRIAXone 1,000 MG in Water for inj. (sterile) 20 ML 10 ML IVP SCH (21:16)
[2018-06-30 23:13] LABS: Bilirubin,Urine Negative (Negative); Blood,Urine Small (Negative); Clarity,Urine Cloudy (Clear); Glucose,Urine (UA) Normal (Normal); Ketones,Urine Negative (Negative); Leukocyte Esterase,Urine Moderate (Negative); Nitrite,Urine Negative (Negative); Protein,Urine Negative (Neg-Trace); Specific Gravity,Urine 1.015 (1.010-1.025); Urobilinogen,Urine Normal (Normal)
[2018-06-30 23:46] LABS: Color,Urine Light Yellow (Yellow)
[2018-06-30 23:48] LABS: Hyaline Casts,Urine Few per lpf (None-Few); Squamous Epithelial Cell,Urine Few per lpf (None-Few); WBC,Urine TNTC per hpf (0-3)
[2018-06-30 23:49] LABS: Bacteria,Urine Moderate per hpf (None-Few); Renal Epithelial Cells,Urine Few per hpf (None-Few)
[2018-07-01] MEDS: *HR* Enoxaparin 40 MG/0.4 ML SYRINGE SQ SCH (06:51)
[2018-07-01] MEDS: Lisinopril 20 MG TABLET PO SCH (09:22)
[2018-07-01] MEDS: *HR* Metformin 500 MG TABLET PO SCH ×2 (09:23→19:48)
[2018-07-01] MEDS: Topiramate 25 MG TABLET PO SCH (09:23)
[2018-07-01] MEDS: Lactobacillus 1 EACH CAP.SPRINK PO SCH ×2 (09:23→19:48)
[2018-07-01] MEDS: Magnesium Oxide 400 MG TABLET PO SCH ×2 (09:23→19:48)
[2018-07-01] MEDS: Metoprolol XL (24 HR) Succ 50 MG TAB.ER.24H PO SCH (09:23)
[2018-07-01] MEDS: Insulin LISPRO 300 UNITS/3 ML VIAL SQ SCH ×3 (09:23→15:51)
--- NOTE | 2018-07-01 10:07 | Internal Med Progress Note ---
Date of Encounter: 07/01/18 Time of Encounter: 10:00 - Assessment and plan (1) Seizure disorder Current Visit: No Status: Chronic Assessment and plan: July 02. Continue Topamax and remain off cyclobenzaprine. (2) UTI (urinary tract infection) Current Visit: No Status: Acute Assessment and plan: July 02. Urine culture report pending. Continue empiric Rocephin with lactobacillus. Qualifiers: Urinary tract infection type: site unspecified Hematuria presence: without hematuria Qualified Code(s): N39.0 - Urinary tract infection, site not specified (3) Polysubstance abuse Current Visit: Yes Status: Chronic Assessment and plan: July 01. Continue to monitor for withdrawal. (4) Multiple falls Current Visit: Yes Status: Acute Assessment and plan: July 01. PT and OT evaluations have been ordered. (5) Hypokalemia Current Visit: Yes Status: Acute Assessment and plan: July 01. Recheck labs in a.m. (6) Hypomagnesemia Current Visit: Yes Status: Acute Assessment and plan: July 01. Recheck labs in a.m. (7) Type 2 diabetes mellitus Current Visit: No Status: Chronic Assessment and plan: July 01. Hemoglobin A1c was 6.1% on 03/11/2018. Continue metformin. Qualifiers: Diabetes mellitus care home insulin use: without exterminator use Diabetes mellitus complication status: without complication Qualified Code(s): E11.9 - Type 2 diabetes mellitus without complications (8) HTN (hypertension) Current Visit: No Status: Chronic Assessment and plan: July 01. Continue lisinopril and metoprolol. Qualifiers: Hypertension type: essential hypertension Qualified Code(s): I10 - Essential (primary) hypertension - Subjective Interval history: July 01. She has no new complaints and feels better. No further seizures have occurred. - Constitutional Vitals: Temp Pulse Resp BP Pulse Ox 97.5 F L 62 16 122/63 94 07/01/18 06:11 07/01/18 06:11 07/01/18 06:11 07/01/18 06:11 07/01/18 06:11 Exam: She is resting comfortably on the side of bed and appears in no acute distress. Her affect is bright and cheerful. I reviewed her medications and lab results. Internal Medicine: Result - Labs CBC & Chem 7: 06/29/18 19:04 06/30/18 06:05 Labs: Urine 06/30/18 Range/Units 23:01 Urine Color Light Yellow (Yellow) Urine Clarity Cloudy A (Clear) Urine pH 7.0 (5.0-8.0) pH Units Ur Specific [place] 1.015 (1.010-1.025) Urine Protein Negative (Neg-Trace) mg/dL Urine Glucose (UA) Normal (Normal) mg/dL - VTE Reasons for not Prescribing Prophylaxis: Treatment not Indicated - Low risk for VTE Consult Discharge Plan - Plan Referrals: Alireza Crocker, [place] [Primary Care Provider] - 1 week
[2018-07-01] MEDS: cefTRIAXone 1,000 MG in Water for inj. (sterile) 20 ML 10 ML IVP SCH (19:46)
[2018-07-02] MEDS: *HR* Enoxaparin 40 MG/0.4 ML SYRINGE SQ SCH (05:49)
[2018-07-02 06:21] LABS: Basophils # 0.1 K/mcL (0.0-0.2); Basophils % 0.7 %; Eosinophils # 0.4 K/mcL (0.0-0.6); Eosinophils % 3.7 %; Hematocrit 38.6 % (35.3-44.9); Hemoglobin 12.8 g/dL (11.5-15.4); Immature Granulocytes % 0.4 % (0-4); Lymphocytes # 2.5 K/mcL (0.6-4.6); Lymphocytes % 23.4 %; Mean Corpuscular HGB Conc 33.2 g/dL (31.6-35.5); Mean Corpuscular Hemoglobin 28.8 pg (28.0-33.3); Mean Corpuscular Volume 86.7 fL (83.0-100.0); Mean Platelet Volume 9.4 fL (9.4-12.4); Monocytes # 0.6 K/mcL (0.0-1.3); Monocytes % 5.5 %; Neutrophils # 6.9 K/mcL (1.6-8.9); Platelet Count 318 K/mcL (140-400); Red Blood Count 4.45 M/mcL (3.82-4.97); Red Cell Distribution Width 12.3 % (11.5-14.5); Segmented Neutrophils % 66.3 %
[2018-07-02 06:56] VITALS: BP 161/98
[2018-07-02 06:56] LABS: BUN/Creatinine Ratio 17 (6-26); Blood Urea Nitrogen 12 mg/dL (6-20); Calcium 9.3 mg/dL (8.6-10.3); Carbon Dioxide 24 mEq/L (23-29); Chloride 105 mEq/L (98-107); Glucose 102 mg/dL (70-105); Magnesium 1.5 mg/dL (1.6-2.6); Osmolality,Calculated 284 (280-300); Potassium 3.8 mEq/L (3.5-5.1); Sodium 137 mEq/L (136-145); eGFR For Non-African Americans > 60 (> 60)
[2018-07-02] MEDS: Insulin LISPRO 300 UNITS/3 ML VIAL SQ SCH (07:37)
[2018-07-02] MEDS: Topiramate 25 MG TABLET PO SCH (08:35)
[2018-07-02] MEDS: Lisinopril 20 MG TABLET PO SCH (08:35)
[2018-07-02] MEDS: Magnesium Oxide 400 MG TABLET PO SCH (08:35)
[2018-07-02] MEDS: *HR* Metformin 500 MG TABLET PO SCH (08:35)
[2018-07-02] MEDS: Lactobacillus 1 EACH CAP.SPRINK PO SCH (08:35)
[2018-07-02] MEDS: Metoprolol XL (24 HR) Succ 50 MG TAB.ER.24H PO SCH (08:36)
--- NOTE | 2018-07-02 10:44 | Discharge Summary ---
Orders not resulted at time of discharge: Pending orders 06/30/18 23:01 Culture,Urine [RM] Routine Date of Encounter: 07/02/18 Time of Encounter: 10:25 - Discharge Diagnosis (1) Seizure disorder Priority: Primary Status: Chronic (2) UTI (urinary tract infection) Priority: Secondary Status: Acute Qualifiers: Urinary tract infection type: site unspecified Hematuria presence: without hematuria Qualified Code(s): N39.0 - Urinary tract infection, site not specified (3) Polysubstance abuse Priority: Secondary Status: Chronic (4) Multiple falls Priority: Secondary Status: Acute (5) Hypokalemia Priority: Secondary Status: Resolved (6) Hypomagnesemia Priority: Secondary Status: Acute (7) Type 2 diabetes mellitus Priority: Secondary Status: Chronic Qualifiers: Diabetes mellitus termite exterminator helper insulin use: without termite exterminator helper use Diabetes mellitus complication status: without complication Qualified Code(s): E11.9 - Type 2 diabetes mellitus without complications (8) HTN (hypertension) Priority: Secondary Status: Chronic Qualifiers: Hypertension type: essential hypertension Qualified Code(s): I10 - Essential (primary) hypertension Hospital course: Ms. Almanzar is a 57 year old female who came to emergency room after having 2 witnessed seizures at her house. Her daughter who supplies most updated history today did not witness the 2 seizures at home. After transport to emergency room the patient had 2 additional seizures which were witnessed by the daughter. The daughter describes them as generalized tonic-clonic seizures lasting approximately 1 minute with postictal state. Patient was admitted to [facility] for ongoing care needs. Initial orders were written by the emergency room physician. I saw her on June 30 and performed a history and physical. She had no further seizures after admission to [facility]. She was started on maintenance Topamax 50 mg daily. Cyclobenzaprine was discontinued to avoid seizures. Her mental status improved significantly. She was pleasant and talkative by time of discharge. I encouraged her to discontinue illicit drug use. Topamax dose can be increased by her PCP as needed. I recommended she follow with a neurologist for ongoing monitoring. Urine culture was ordered with final report pending at time of discharge. Preliminary report showed growth of gram-negative danielle. She was given Rocephin empirically at admission. She will be prescribed Ceftin and Lactobacillus for 2 additional days at discharge. She had physical therapy and occupational therapy evaluations during her hospital stay. Hypokalemia resolved with potassium supplementation. Her PCP can monitor labs. Magnesium level improved to 1.5 on day of discharge. She will continue with magnesium oxide for 2 additional days at discharge. Her PCP can monitor labs. There were no other new problems and on July 02 she was stable for discharge home. She will follow with her PCP Alireza Crocker within 1 week. - Time Spent with Patient Total time spent providing and/or coordinating discharge services: - Discharge Medications Prescriptions: New Cefuroxime PO [Ceftin] 500 mg PO Q12HR #4 tablet Lactobacillus [Culturelle] 1 each PO BID #4 cap.sprink Magnesium Oxide [Mag-Ox] 400 mg PO BID #4 tablet Topiramate [Topamax] 50 mg PO DAILY #30 tablet Continue metFORMIN [Glucophage] 500 mg PO BID Omeprazole [PriLOSEC] 40 mg PO DAILY Gabapentin [Neurontin] 800 mg PO TID Lisinopril [Zestril] 40 mg PO DAILY Metoprolol Succinate 200 mg PO DAILY SUMAtriptan Succinate [Imitrex] 100 mg PO Q2H PRN PRN Reason: Migraine Headache Citalopram Hydrobromide [Citalopram HBr] 40 mg PO DAILY Changed hydrOXYzine HCl [Hydroxyzine HCl] 50 mg PO BID PRN #0 PRN Reason: Anxiety Discontinued Cyclobenzaprine [Flexeril] 10 mg PO TID PRN #21 tablet PRN Reason: Pain Home Medications: Gabapentin [Neurontin] 800 mg PO TID 12/13/16 [History] Omeprazole [PriLOSEC] 40 mg PO DAILY 12/13/16 [History] metFORMIN [Glucophage] 500 mg PO BID 12/13/16 [History] Lisinopril [Zestril] 40 mg PO DAILY 03/03/17 [History] Metoprolol Succinate 200 mg PO DAILY 03/12/18 [History] SUMAtriptan Succinate [Imitrex] 100 mg PO Q2H PRN 03/12/18 [History] Citalopram Hydrobromide [Citalopram HBr] 40 mg PO DAILY 06/29/18 [History] Cefuroxime PO [Ceftin] 500 mg PO Q12HR #4 tablet 07/02/18 [Rx] Lactobacillus [Culturelle] 1 each PO BID #4 cap.sprink 07/02/18 [Rx] Magnesium Oxide [Mag-Ox] 400 mg PO BID #4 tablet 07/02/18 [Rx] Topiramate [Topamax] 50 mg PO DAILY #30 tablet 07/02/18 [Rx] hydrOXYzine HCl [Hydroxyzine HCl] 50 mg PO BID PRN #0 07/02/18 [Rx] Allergies/Adverse Reactions: Allergy/AdvReac Type Severity Reaction Status Date / Time No Known Allergies Allergy Verified 06/29/18 18:37 Date of admission: 06/30/18 10:30 Primary care physician: Alireza Crocker CNP Consults: 06/30/18 00:07 Consult to Spotter [CONS] Routine Reason for SW Consult: Family concerns for pt drug abuse 06/30/18 10:30 Consult to Occupational Therapy [CONS] Routine Comment: Evaluate, develop and implement POC Reason for Consult: Multiple falls Does patient have active BEDREST order?: No Is patient medically & hemodynamically stable?: Yes Patient assessed for mobility or mobilized this visit?: Yes Consult to Physical Therapy [CONS] Routine Comment: Evaluate, develop and implement POC Reason for Consult: Multiple falls Does patient have active BEDREST order?: No Is patient medically & hemodynamically stable?: Yes Patient assessed for mobility or mobilized this visit?: Yes - Constitutional Vitals: Temp Pulse Resp BP Pulse Ox 97.8 F 68 16 161/98 97 07/02/18 06:54 07/02/18 06:54 07/02/18 06:54 07/02/18 06:54 07/02/18 06:54 - Patient Status Disposition: Home, Self-Care Condition: Fair - Discharge Instructions Follow Up With: Alireza Crocker CNP [Primary Care Provider] - 1 week - Diet and Activity Activity: resume usual activities as tolerated Diet: advance to your usual diet - VTE Reasons for not Prescribing Prophylaxis: Treatment not Indicated - Low risk for VTE
[2018-07-02] MEDS ORDERED: *HR* Metformin 500 MG TABLET PO SCH (17:00)
--- NOTE | 2018-07-03 12:55 | Electrocardiograph Report ---
[address] [place] [address] Test Date: 2018-06-29 Pat Name: Annabella Almanzar Department: EDP-14 Room: [facility] Gender: F Spiral Binder: : 1960 Requested By: Rebecca Le Order Number: [id number] Reading MD: Michelle Walter Measurements Intervals [place] Rate: 101 P: 70 ND: 170 QRS: 35 QRSD: 99 T: 47 QT: 363 QTc: 471 Interpretive Statements Sinus tachycardia Electronically Signed On 07-03-2018 12:53:49 EST by Michelle Walter
--- NOTE | 2018-07-03 12:56 | Electrocardiograph Report ---
[place] [id number] Test Date: 2018-06-29 Pat Name: Annabella Almanzar Department: EDP-14 Room: [facility] Gender: F Clinical Care Coordinator: : 1960 Requested By: Rebecca Le Order Number: [id number] Reading MD: Michelle Walter Measurements Intervals [place] Rate: 114 P: 83 MD: 177 QRS: 47 QRSD: 91 T: QT: 345 QTc: 476 Interpretive Statements Sinus tachycardia Borderline ST abnormalities Electronically Signed On 07-03-2018 12:54:18 EST by Michelle Walter
== END 2018-07-02 11:19 | disposition home or self-care (01) | DRG 53 ==
LOC: INPPIK 18:24 → EMEROOPIK 18:24 → INPPIK 23:29
PROVIDERS: ADMIT Internal Medicine; ATTEND Internal Medicine

== ENCOUNTER 2019-04-11 17:01 | Observation (INO) ==
[2019-04-11] MEDS ORDERED: methylPREDNISolone 125 MG/2 ML VIAL IVP ONE (17:32)
[2019-04-11] MEDS ORDERED: 0.9 % Sodium Chloride 1,000 ML IVC ONE (17:32)
[2019-04-11] MEDS ORDERED: Ipratropium/Albuterol Neb 3 ML IH ONE (17:32)
[2019-04-11 18:23] LABS: Basophils # 0.1 K/mcL (0.0-0.2); Basophils % 0.9 %; Eosinophils # 0.6 K/mcL (0.0-0.6); Eosinophils % 4.5 %; Hematocrit 39.5 % (35.3-44.9); Immature Granulocytes % 0.4 % (0-4); Lymphocytes # 4.6 K/mcL (0.6-4.6); Lymphocytes % 34.9 %; Mean Corpuscular HGB Conc 32.9 g/dL (31.6-35.5); Mean Corpuscular Hemoglobin 28.6 pg (28.0-33.3); Mean Platelet Volume 9.5 fL (9.4-12.4); Monocytes # 0.9 K/mcL (0.0-1.3); Neutrophils # 6.9 K/mcL (1.6-8.9); Platelet Count 333 K/mcL (140-400); Red Blood Count 4.54 M/mcL (3.82-4.97); Red Cell Distribution Width 13.3 % (11.5-14.5); Segmented Neutrophils % 52.3 %; White Blood Count 13.1 K/mcL (4.3-11.1)
[2019-04-11 18:38] LABS: BUN/Creatinine Ratio 10 (6-26); Blood Urea Nitrogen 8 mg/dL (8-23); Calcium 9.2 mg/dL (8.6-10.3); Carbon Dioxide 28 mEq/L (23-29); Chloride 102 mEq/L (98-107); Glucose 90 mg/dL (70-105); Osmolality,Calculated 286 (280-300); Sodium 139 mEq/L (136-145); eGFR For African Americans > 60 (> 60); eGFR For Non-African Americans > 60 (> 60)
[2019-04-11] MEDS ORDERED: Isovue-370 500 ML BOTTLE IVP ONE (18:50)
[2019-04-11] MEDS ORDERED: Azithromycin 500 MG in 0.9 % Sodium Chloride 250 ML IVPB ONE (19:53)
[2019-04-11] MEDS ORDERED: Naloxone 0.4 MG/ML INJ IVP PRN (21:55)
[2019-04-11] MEDS: 0.9 % Sodium Chloride 1,000 ML IVC SCH (23:07)
[2019-04-11] MEDS: Gabapentin 400 MG CAPSULE PO SCH (23:08)
[2019-04-12] MEDS: Ipratropium/Albuterol Neb 3 ML IH SCH ×8 (00:05→21:00)
[2019-04-12] MEDS ORDERED: methylPREDNISolone 125 MG/2 ML VIAL IVP ONE (04:00)
[2019-04-12] MEDS: Gabapentin 400 MG CAPSULE PO SCH ×3 (07:58→21:54)
[2019-04-12] MEDS: Metoprolol XL (24 HR) Succ 50 MG TAB.ER.24H PO SCH (07:58)
[2019-04-12] MEDS: Lisinopril 20 MG TABLET PO SCH (07:58)
[2019-04-12] MEDS: 0.9 % Sodium Chloride 1,000 ML IVC SCH (08:07)
[2019-04-12] MEDS ORDERED: cefTRIAXone 1,000 MG in 0.9 % Sodium Chloride Mini Bag 100 ML IVPB SCH (09:00)
[2019-04-12] MEDS: Promethazine/Codeine Oral Sryup 5 ML UDC PO PRN ×3 (10:34→19:02)
[2019-04-12] MEDS ORDERED: SUMAtriptan succinate 50 MG TABLET PO ONE (12:48)
[2019-04-12] MEDS: *HR* Metformin 500 MG TABLET PO SCH (17:21)
[2019-04-12] MEDS: MethylPREDNISolone 40 MG/ML VIAL IVP SCH (17:21)
[2019-04-12] MEDS ORDERED: cefTRIAXone 1,000 MG in Water for inj. (sterile) 10 ML IVPB SCH (20:00)
[2019-04-12] MEDS: Azithromycin 500 MG in 0.9 % Sodium Chloride 250 ML IVPB SCH (21:54)
[2019-04-13] MEDS: Ipratropium/Albuterol Neb 3 ML IH SCH ×7 (00:30→20:25)
[2019-04-13] MEDS: MethylPREDNISolone 40 MG/ML VIAL IVP SCH ×2 (05:16→17:44)
[2019-04-13] MEDS: Promethazine/Codeine Oral Sryup 5 ML UDC PO PRN ×3 (05:18→17:44)
[2019-04-13] MEDS: *HR* Metformin 500 MG TABLET PO SCH ×2 (09:30→15:54)
[2019-04-13] MEDS: Metoprolol XL (24 HR) Succ 50 MG TAB.ER.24H PO SCH (09:30)
[2019-04-13] MEDS: Lisinopril 20 MG TABLET PO SCH (09:30)
[2019-04-13] MEDS: Gabapentin 400 MG CAPSULE PO SCH ×3 (09:31→19:37)
[2019-04-13] MEDS: Azithromycin 500 MG in 0.9 % Sodium Chloride 250 ML IVPB SCH (21:22)
[2019-04-14] MEDS: Promethazine/Codeine Oral Sryup 5 ML UDC PO PRN ×3 (00:25→09:59)
[2019-04-14] MEDS: Ipratropium/Albuterol Neb 3 ML IH SCH ×3 (00:38→07:55)
[2019-04-14] MEDS: MethylPREDNISolone 40 MG/ML VIAL IVP SCH (05:14)
[2019-04-14 09:27] VITALS: BP 171/99
[2019-04-14] MEDS: Metoprolol XL (24 HR) Succ 50 MG TAB.ER.24H PO SCH (09:35)
[2019-04-14] MEDS: Gabapentin 400 MG CAPSULE PO SCH (09:35)
[2019-04-14] MEDS: *HR* Metformin 500 MG TABLET PO SCH (09:37)
[2019-04-14] MEDS: Lisinopril 20 MG TABLET PO SCH (09:37)
[2019-04-14] MEDS ORDERED: amLODIPine 5 MG TABLET PO ONE (09:50)
== END 2019-04-14 11:00 | disposition home or self-care (01) ==
LOC: INPPIK 17:01 → EMEROOPIK 17:01 → SUATTDRO 20:02 → INPPIK 21:07
PROVIDERS: ADMIT Emergency Medicine; ATTEND Family Medicine

== ENCOUNTER 2019-08-10 00:19 | Observation (INO) ==
[2019-08-10] MEDS ORDERED: 0.9 % Sodium Chloride 1,000 ML IVC ONE (00:47)
[2019-08-10 01:13] LABS: VBG HCO3 27 mEq/L (21-27); VBG PCO2 48 mmHg (41-51); VBG PH 7.36 pH Units (7.32-7.42); VBG PO2 38 mmHg (25-50)
[2019-08-10] MEDS ORDERED: Ipratropium/Albuterol Neb 3 ML IH ONE (01:13)
[2019-08-10 01:16] LABS: Basophils # 0.1 K/mcL (0.0-0.2); Basophils % 0.7 %; Eosinophils # 0.5 K/mcL (0.0-0.6); Eosinophils % 4.7 %; Hematocrit 30.3 % (35.3-44.9); Hemoglobin 9.7 g/dL (11.5-15.4); Immature Granulocytes % 0.8 % (0-4); Lymphocytes # 1.6 K/mcL (0.6-4.6); Lymphocytes % 14.5 %; Mean Corpuscular Hemoglobin 26.9 pg (28.0-33.3); Mean Corpuscular Volume 84.2 fL (83.0-100.0); Mean Platelet Volume 9.1 fL (9.4-12.4); Monocytes # 0.7 K/mcL (0.0-1.3); Neutrophils # 8.3 K/mcL (1.6-8.9); Platelet Count 300 K/mcL (140-400); Red Cell Distribution Width 13.4 % (11.5-14.5); Segmented Neutrophils % 73.3 %; White Blood Count 11.3 K/mcL (4.3-11.1)
[2019-08-10 01:35] LABS: Bilirubin,Urine Negative (Negative); Blood,Urine Negative (Negative); Glucose,Urine (UA) Normal (Normal); Ketones,Urine Negative (Negative); Leukocyte Esterase,Urine Small (Negative); Nitrite,Urine Negative (Negative); PH,Urine 7.5 pH Units (5.0-8.0); Protein,Urine Negative (Neg-Trace); Urobilinogen,Urine Normal (Normal)
[2019-08-10 01:37] LABS: Clarity,Urine Slightly Hazy (Clear); Color,Urine Light Yellow (Yellow)
[2019-08-10 01:37] LABS: Alanine Aminotransferase 10 Units/L (7-52); Albumin 3.2 g/dL (3.5-5.7); Albumin/Globulin Ratio 1.5 (1.1-2.2); Alkaline Phosphatase 73 Units/L (34-104); Aspartate Amino Transferase 10 Units/L (13-39); BUN/Creatinine Ratio 12 (6-26); Bilirubin,Indirect 0.2 mg/dL (0.0-1.0); Bilirubin,Total 0.2 mg/dL (0.3-1.0); Blood Urea Nitrogen 11 mg/dL (8-23); Calcium 8.1 mg/dL (8.6-10.3); Carbon Dioxide 28 mEq/L (23-29); Chloride 100 mEq/L (98-107); Ethanol < 10 mg/dL (Less than 10); Globulin 2.2 g/dL (2.4-3.5); Glucose 122 mg/dL (70-105); Osmolality,Calculated 287 (280-300); Potassium 4.1 mEq/L (3.5-5.1); Sodium 138 mEq/L (136-145); Total Protein 5.4 g/dL (6.4-8.9); eGFR For African Americans > 60 (> 60); eGFR For Non-African Americans > 60 (> 60)
[2019-08-10 01:40] LABS: Troponin I < 0.03 ng/mL (< 0.04)
[2019-08-10 01:48] LABS: Amphetamine Screen,Urine Negative ng/mL (Cutoff=1000); Barbiturate Screen,Urine Negative ng/mL (Cutoff=200); Benzodiazepines Screen,Urine Negative ng/mL (Cutoff=200); Cannabinoid Screen,Urine Negative ng/mL (Cutoff = 50); Cocaine Screen,Urine Negative ng/mL (Cutoff= 300); Opiate Screen,Urine Negative ng/mL (Cutoff=300); Phencyclidine Screen,Urine Negative ng/mL (Cutoff=25)
[2019-08-10 01:49] LABS: Bacteria,Urine Few per hpf (None-Few); Hyaline Casts,Urine Few per lpf (None-Few); RBC,Urine 0-3 per hpf (0-3); Squamous Epithelial Cell,Urine Few per lpf (None-Few)
[2019-08-10] MEDS ORDERED: Ketorolac 30 MG/ML VIAL IVP ONE (02:23)
[2019-08-10] MEDS ORDERED: 0.9 % Sodium Chloride 1,000 ML IVC SCH (05:37)
[2019-08-10] MEDS ORDERED: Naloxone 0.4 MG/ML INJ IVP PRN (05:37)
[2019-08-10] MEDS ORDERED: Acetaminophen 325 MG TABLET PO PRN (06:00)
[2019-08-10] MEDS ORDERED: Ibuprofen 400 MG TABLET PO PRN (06:00)
[2019-08-10] MEDS ORDERED: hydroCHLOROthiazide 25 MG TABLET PO SCH (09:00)
[2019-08-10] MEDS: *HR* Metformin 500 MG TABLET PO SCH ×2 (09:13→19:53)
[2019-08-10] MEDS: Metoprolol XL (24 HR) Succ 50 MG TAB.ER.24H PO SCH (09:13)
[2019-08-10] MEDS: Lisinopril 20 MG TABLET PO SCH (09:14)
[2019-08-10] MEDS: hydrOXYzine pamoate 25 MG CAPSULE PO PRN ×2 (09:24→23:10)
[2019-08-10] MEDS ORDERED: D5% in Water 1,000 ML IVC PRN (11:23)
[2019-08-10] MEDS ORDERED: *HR* Dextrose 50 % in Water (Vial) 50 ML VIAL IVP PRN (11:23)
[2019-08-10] MEDS ORDERED: Dextrose Gel 15 GM/37.5 ML TUBE PO PRN ×2 (11:23)
[2019-08-10] MEDS: 0.9 % Sodium Chloride 1,000 ML IVC SCH (15:36)
[2019-08-10] MEDS: SUMAtriptan succinate 50 MG TABLET PO PRN (15:37)
[2019-08-10] MEDS: *HR* LORazepam 2 MG/ML VIAL IVP PRN (15:37)
[2019-08-10] MEDS ORDERED: GuaiFENesin Liq 200 MG/10 ML UDC PO PRN (17:26)
[2019-08-11] MEDS: 0.9 % Sodium Chloride 1,000 ML IVC SCH (00:21)
[2019-08-11] MEDS: *HR* LORazepam 2 MG/ML VIAL IVP PRN (00:22)
[2019-08-11 06:48] LABS: Hemoglobin 10.2 g/dL (11.5-15.4); Mean Corpuscular HGB Conc 31.9 g/dL (31.6-35.5); Mean Corpuscular Hemoglobin 27.3 pg (28.0-33.3); Mean Corpuscular Volume 85.6 fL (83.0-100.0); Mean Platelet Volume 8.9 fL (9.4-12.4); Platelet Count 281 K/mcL (140-400); Red Blood Count 3.74 M/mcL (3.82-4.97); Red Cell Distribution Width 13.6 % (11.5-14.5); White Blood Count 9.2 K/mcL (4.3-11.1)
[2019-08-11 07:00] LABS: BUN/Creatinine Ratio 15 (6-26); Blood Urea Nitrogen 16 mg/dL (8-23); Carbon Dioxide 28 mEq/L (23-29); Chloride 104 mEq/L (98-107); Glucose 104 mg/dL (70-105); Osmolality,Calculated 291 (280-300); Potassium 4.6 mEq/L (3.5-5.1); Sodium 140 mEq/L (136-145); eGFR For African Americans > 60 (> 60); eGFR For Non-African Americans 53 (> 60)
[2019-08-11 07:17] VITALS: BP 136/75
[2019-08-11 07:24] LABS: Calcium 8.3 mg/dL (8.6-10.3); Magnesium 1.9 mg/dL (1.6-2.6)
[2019-08-11 08:25] LABS: Estimated Average Glucose 137 mg/dl
[2019-08-11] MEDS: Lisinopril 20 MG TABLET PO SCH (08:55)
[2019-08-11] MEDS: Metoprolol XL (24 HR) Succ 50 MG TAB.ER.24H PO SCH (08:55)
[2019-08-11] MEDS ORDERED: *HR* Metformin 500 MG TABLET PO SCH (09:00)
[2019-08-11] MEDS: SUMAtriptan succinate 50 MG TABLET PO PRN (09:15)
== END 2019-08-11 12:05 | disposition home or self-care (01) ==
LOC: EMEROOPIK 00:19 → INPPIK 00:19 → SUATTDRO 04:04 → INPPIK 05:07
PROVIDERS: ADMIT Internal Medicine; ATTEND Family Medicine

== ENCOUNTER 2021-02-01 12:24 | Inpatient (IN) ==
[2021-02-01] MEDS ORDERED: 0.9 % Sodium Chloride 1,000 ML IVC ONE (12:57)
[2021-02-01 13:05] LABS: Bilirubin,Urine Negative (Negative); Blood,Urine Negative (Negative); Clarity,Urine Clear (Clear); Color,Urine Yellow (Yellow); Glucose,Urine (UA) Normal (Normal); Ketones,Urine Negative (Negative); Leukocyte Esterase,Urine Negative (Negative); Nitrite,Urine Negative (Negative); PH,Urine 5.5 pH Units (5.0-8.0); Protein,Urine Negative (Neg-Trace); Urobilinogen,Urine Normal (Normal)
[2021-02-01 13:26] LABS: Basophils # 0.1 K/mcL (0.0-0.2); Basophils % 0.5 %; Eosinophils # 0.2 K/mcL (0.0-0.6); Eosinophils % 1.1 %; Hematocrit 29.5 % (35.3-44.9); Hemoglobin 9.5 g/dL (11.5-15.4); Lymphocytes # 0.9 K/mcL (0.6-4.6); Lymphocytes % 6.5 %; Mean Corpuscular HGB Conc 32.2 g/dL (31.6-35.5); Mean Corpuscular Hemoglobin 29.5 pg (28.0-33.3); Mean Corpuscular Volume 91.6 fL (83.0-100.0); Mean Platelet Volume 9.4 fL (9.4-12.4); Monocytes % 6.8 %; Neutrophils # 11.9 K/mcL (1.6-8.9); Platelet Count 365 K/mcL (140-400); Red Blood Count 3.22 M/mcL (3.82-4.97); Red Cell Distribution Width 15.3 % (11.5-14.5); Segmented Neutrophils % 84.1 %; White Blood Count 14.1 K/mcL (4.3-11.1)
[2021-02-01 13:26] LABS: VBG HCO3 17 mEq/L (21-27); VBG PCO2 38 mmHg (41-51); VBG PH 7.27 pH Units (7.32-7.42); VBG PO2 31 mmHg (25-50)
[2021-02-01 13:46] LABS: Troponin I < 0.03 ng/mL (< 0.04)
[2021-02-01 13:48] LABS: Alanine Aminotransferase 12 Units/L (7-52); Albumin 4.3 g/dL (3.5-5.7); Albumin/Globulin Ratio 1.4 (1.1-2.2); Alkaline Phosphatase 104 Units/L (34-104); Aspartate Amino Transferase 13 Units/L (13-39); BUN/Creatinine Ratio 19 (6-26); Bilirubin,Indirect 0.3 mg/dL (0.0-1.0); Bilirubin,Total 0.3 mg/dL (0.3-1.0); Blood Urea Nitrogen 63 mg/dL (8-23); Calcium 10.4 mg/dL (8.6-10.3); Carbon Dioxide 18 mEq/L (23-29); Chloride 101 mEq/L (98-107); Ethanol < 10 mg/dL (Less than 10); Glucose 137 mg/dL (70-105); Lipase 14 Units/L (11-82); Osmolality,Calculated 296 (280-300); Potassium 5.1 mEq/L (3.5-5.1); Sodium 133 mEq/L (136-145); Total Protein 7.3 g/dL (6.4-8.9); eGFR For African Americans 17 (> 60); eGFR For Non-African Americans 14 (> 60)
[2021-02-01 14:53] LABS: Amphetamine Screen,Urine Negative ng/mL (Cutoff=1000); Barbiturate Screen,Urine Negative ng/mL (Cutoff=200); Benzodiazepines Screen,Urine Negative ng/mL (Cutoff=200); Cannabinoid Screen,Urine Positive ng/mL (Cutoff = 50); Cocaine Screen,Urine Negative ng/mL (Cutoff= 300); Opiate Screen,Urine Positive ng/mL (Cutoff=300); Phencyclidine Screen,Urine Negative ng/mL (Cutoff=25)
[2021-02-01] MEDS ORDERED: Naloxone 0.4 MG/ML INJ IVP PRN (15:09)
[2021-02-01] MEDS ORDERED: Nitroglycerin 0.4 MG TAB.SUBL SL PRN (15:10)
[2021-02-01] MEDS ORDERED: cloNIDine HCL 0.1 MG TABLET PO PRN (15:23)
[2021-02-01] MEDS ORDERED: hydrALAZINE 10 MG TABLET PO PRN (15:27)
[2021-02-01] MEDS ORDERED: D5% in Water 1,000 ML IVC PRN (15:29)
[2021-02-01] MEDS ORDERED: *HR* Dextrose 50 % in Water (Syg) 50 ML SYRINGE IVP PRN (15:29)
[2021-02-01] MEDS ORDERED: Dextrose Gel 15 GM/37.5 ML TUBE PO PRN ×2 (15:29)
[2021-02-01] MEDS: Budesonide/Formoterol 160/4.5 1 PUFF INH IH SCH (16:31)
[2021-02-01] MEDS: 0.9 % Sodium Chloride 1,000 ML IVC SCH (17:51)
[2021-02-01] MEDS: Insulin LISPRO 300 UNITS/3 ML VIAL SUBQ SCH ×2 (17:57→20:33)
[2021-02-01] MEDS: Nystatin POWDER 30 GM BOTTLE TP SCH ×2 (20:35→23:52)
[2021-02-02] MEDS: 0.9 % Sodium Chloride 1,000 ML IVC SCH (01:51)
[2021-02-02 08:00] LABS: Basophils # 0.1 K/mcL (0.0-0.2); Basophils % 0.5 %; Eosinophils # 0.4 K/mcL (0.0-0.6); Eosinophils % 3.8 %; Hematocrit 24.8 % (35.3-44.9); Hemoglobin 7.8 g/dL (11.5-15.4); Immature Granulocytes % 1.3 % (0-4); Lymphocytes # 1.4 K/mcL (0.6-4.6); Lymphocytes % 14.2 %; Mean Corpuscular HGB Conc 31.5 g/dL (31.6-35.5); Mean Corpuscular Hemoglobin 29.3 pg (28.0-33.3); Mean Corpuscular Volume 93.2 fL (83.0-100.0); Mean Platelet Volume 9.7 fL (9.4-12.4); Monocytes # 0.8 K/mcL (0.0-1.3); Monocytes % 8.3 %; Neutrophils # 6.9 K/mcL (1.6-8.9); Platelet Count 307 K/mcL (140-400); Red Blood Count 2.66 M/mcL (3.82-4.97); Red Cell Distribution Width 15.6 % (11.5-14.5); Segmented Neutrophils % 71.9 %; White Blood Count 9.7 K/mcL (4.3-11.1)
[2021-02-02 08:30] LABS: Albumin 3.4 g/dL (3.5-5.7); Albumin/Globulin Ratio 1.4 (1.1-2.2); Bilirubin,Total 0.3 mg/dL (0.3-1.0); Calcium 9.3 mg/dL (8.6-10.3); Globulin 2.5 g/dL (2.4-3.5); Potassium 3.8 mEq/L (3.5-5.1); Total Protein 5.9 g/dL (6.4-8.9)
[2021-02-02] MEDS ORDERED: predniSONE 20 MG TABLET PO SCH (09:00)
[2021-02-02] MEDS ORDERED: allopurinoL 100 MG TABLET PO SCH (09:00)
[2021-02-02] MEDS: SUMAtriptan succinate 50 MG TABLET PO PRN ×2 (09:20→13:58)
[2021-02-02] MEDS: Insulin LISPRO 300 UNITS/3 ML VIAL SUBQ SCH ×4 (09:21→21:17)
[2021-02-02] MEDS: Nystatin POWDER 30 GM BOTTLE TP SCH ×3 (09:21→21:17)
[2021-02-02] MEDS: Budesonide/Formoterol 160/4.5 1 PUFF INH IH SCH ×2 (09:32→22:11)
[2021-02-02] MEDS: Benzonatate 100 MG CAPSULE PO PRN (09:33)
[2021-02-02] MEDS: levoFLOXacin 750 MG/150 ML 750 MG/150 ML BAG IVPB SCH (09:33)
[2021-02-02] MEDS: Acetaminophen 325 MG TABLET PO PRN ×2 (15:46→23:24)
[2021-02-02] MEDS: Loratadine 10 MG TABLET PO SCH (16:54)
[2021-02-02] MEDS ORDERED: Melatonin 3 MG TABLET PO ONE (23:14)
[2021-02-03] MEDS: Acetaminophen 325 MG TABLET PO PRN ×3 (05:25→21:20)
[2021-02-03 06:52] LABS: Basophils # 0.1 K/mcL (0.0-0.2); Basophils % 0.7 %; Eosinophils # 0.5 K/mcL (0.0-0.6); Eosinophils % 4.4 %; Hematocrit 27.2 % (35.3-44.9); Hemoglobin 8.6 g/dL (11.5-15.4); Immature Granulocytes % 4.1 % (0-4); Lymphocytes # 1.8 K/mcL (0.6-4.6); Lymphocytes % 14.8 %; Mean Corpuscular HGB Conc 31.6 g/dL (31.6-35.5); Mean Corpuscular Hemoglobin 29.6 pg (28.0-33.3); Mean Corpuscular Volume 93.5 fL (83.0-100.0); Mean Platelet Volume 9.3 fL (9.4-12.4); Monocytes # 0.8 K/mcL (0.0-1.3); Monocytes % 6.9 %; Neutrophils # 8.4 K/mcL (1.6-8.9); Nucleated Red Blood Cells 0.2 /100 WBC (0); Platelet Count 335 K/mcL (140-400); Red Blood Count 2.91 M/mcL (3.82-4.97); Red Cell Distribution Width 15.5 % (11.5-14.5); Segmented Neutrophils % 69.1 %; White Blood Count 12.1 K/mcL (4.3-11.1)
[2021-02-03 07:13] LABS: Calcium 9.3 mg/dL (8.6-10.3); Potassium 3.6 mEq/L (3.5-5.1)
[2021-02-03] MEDS: Insulin LISPRO 300 UNITS/3 ML VIAL SUBQ SCH ×4 (07:31→21:19)
[2021-02-03] MEDS: Nystatin POWDER 30 GM BOTTLE TP SCH ×3 (07:43→21:21)
[2021-02-03] MEDS: Loratadine 10 MG TABLET PO SCH (07:43)
[2021-02-03] MEDS: Budesonide/Formoterol 160/4.5 1 PUFF INH IH SCH (10:33)
[2021-02-03] MEDS: 0.9 % Sodium Chloride 1,000 ML IVC SCH (14:29)
[2021-02-03] MEDS: SUMAtriptan succinate 50 MG TABLET PO PRN (17:45)
[2021-02-03] MEDS: Benzonatate 100 MG CAPSULE PO PRN (21:20)
[2021-02-04] MEDS: 0.9 % Sodium Chloride 1,000 ML IVC SCH (00:41)
[2021-02-04] MEDS: Budesonide/Formoterol 160/4.5 1 PUFF INH IH SCH ×2 (00:46→10:07)
[2021-02-04 07:10] LABS: Basophils # 0.1 K/mcL (0.0-0.2); Basophils % 0.7 %; Eosinophils # 0.6 K/mcL (0.0-0.6); Eosinophils % 5.5 %; Hematocrit 25.8 % (35.3-44.9); Hemoglobin 8.2 g/dL (11.5-15.4); Immature Granulocytes % 5.6 % (0-4); Lymphocytes # 1.8 K/mcL (0.6-4.6); Lymphocytes % 15.9 %; Mean Corpuscular HGB Conc 31.8 g/dL (31.6-35.5); Mean Corpuscular Hemoglobin 29.3 pg (28.0-33.3); Mean Corpuscular Volume 92.1 fL (83.0-100.0); Mean Platelet Volume 9.5 fL (9.4-12.4); Monocytes # 0.7 K/mcL (0.0-1.3); Monocytes % 6.3 %; Neutrophils # 7.5 K/mcL (1.6-8.9); Platelet Count 365 K/mcL (140-400); Red Cell Distribution Width 15.2 % (11.5-14.5); White Blood Count 11.4 K/mcL (4.3-11.1)
[2021-02-04 07:34] LABS: BUN/Creatinine Ratio 29 (6-26); Blood Urea Nitrogen 29 mg/dL (8-23); Calcium 8.7 mg/dL (8.6-10.3); Carbon Dioxide 21 mEq/L (23-29); Chloride 110 mEq/L (98-107); Glucose 106 mg/dL (70-105); Osmolality,Calculated 298 (280-300); Potassium 3.8 mEq/L (3.5-5.1); Sodium 141 mEq/L (136-145); eGFR For African Americans > 60 (> 60); eGFR For Non-African Americans 56 (> 60)
[2021-02-04] MEDS: Nystatin POWDER 30 GM BOTTLE TP SCH (08:37)
[2021-02-04] MEDS: Loratadine 10 MG TABLET PO SCH (08:37)
[2021-02-04] MEDS: Insulin LISPRO 300 UNITS/3 ML VIAL SUBQ SCH ×2 (08:38→11:56)
[2021-02-04 09:00] LABS: Platelet Estimate Normal (Normal)
[2021-02-04] MEDS: levoFLOXacin 750 MG/150 ML 750 MG/150 ML BAG IVPB SCH (09:49)
[2021-02-04 11:00] VITALS: BP 128/67; PULSE 70; RESP 18; TEMP 98.1; O2SAT 97
[2021-02-05] MEDS ORDERED: levoFLOXacin 750 MG TABLET PO SCH (09:00)
== END 2021-02-04 14:01 | disposition home or self-care (01) | DRG 52 ==
LOC: INPPIK 12:24 → EMEROOPIK 12:24 → INPPIK 17:09
PROVIDERS: ADMIT Internal Medicine; ATTEND Internal Medicine